=== PATIENT | female | born 1980 | race Caucasian/White ===

== ENCOUNTER → 2017-10-01 | Outpatient (CLI) | payer OTHER ==
[~2017-10-01] MED LIST: CYCL10TA9 PO; CYCL5TAB11 PO; DOCU-143 PO; FESO4 PO; IBUP-15 PO; NAPR-243 PO; OXYC-12 PO; SULF1TAB38 PO; ZLP5T PO
== END ==
LOC: CARD 09:47
PROVIDERS: ATTEND Physician Assistant
DX: I34.0 Nonrheumatic mitral (valve) insufficiency (principal); R01.1 Cardiac murmur, unspecified; R00.2 Palpitations; I07.1 Rheumatic tricuspid insufficiency; E66.9 Obesity, unspecified
CPT/HCPCS: 93017

== ENCOUNTER → 2018-07-22 | Outpatient (CLI) | payer BC ==
[~2018-07-22] MED LIST changes: +HYDR-3812 PO; +ONDA4TAB11 PO; +PRAV20TA3 PO; +SULF1TAB35 PO; +TAMS0.4C2 PO
--- NOTE | 2018-07-22 13:20 | Diagnostic Imaging Report ---
INDICATION: Left kidney stone. COMPARISON: The patient's outside study is not available for comparison. TIME OF EXAM: 1:36 p.m. FINDINGS: The bowel gas pattern is unremarkable. No definite radiopaque renal calculi are seen. There are two calcific densities identified in the left pelvis. These are indeterminate between distal ureteric calculi versus phleboliths. No other calcific densities are seen. IMPRESSION: Left pelvic calcifications, as described. These could be distal ureteric versus phleboliths. Dictated by: Dictated on workstation # [id number]
== END ==
LOC: RAD 12:58
PROVIDERS: ATTEND Urology
DX: N20.2 Calculus of kidney with calculus of ureter (principal)
CPT/HCPCS: 74018

== ENCOUNTER 2018-07-23 05:35 | Outpatient (CLI) | payer BC ==
[~2018-07-23] VITALS: Ht 147.3 cm; Wt 68.5 kg
[~2018-07-23 05:35] MED LIST changes: -HYDR-3812 PO; -ONDA4TAB11 PO; -PRAV20TA3 PO; -SULF1TAB35 PO; -TAMS0.4C2 PO
[2018-07-23] MEDS ORDERED: HYDR-3812 PO (13:42)
[2018-07-23] MEDS ORDERED: ONDA4TAB11 PO (13:42)
[2018-07-23] MEDS ORDERED: SULF1TAB35 PO (13:42)
[2018-07-23] MEDS ORDERED: PRAV20TA3 PO (13:42)
[2018-07-23] MEDS ORDERED: TAMS0.4C2 PO (13:42)
== END 2018-07-23 13:47 | disposition home or self-care (01) ==
LOC: PREOP 05:35
PROVIDERS: ATTEND Urology
DX: Z01.818 Encounter for other preprocedural examination (principal)

== ENCOUNTER 2018-08-10 08:00 | Outpatient (RCR) | payer BC ==
[~2018-08-10 08:00] MED LIST changes: +HYDR-3812 PO; +ONDA4TAB11 PO; +PRAV20TA3 PO; +SULF1TAB35 PO; +TAMS0.4C2 PO
== END 2018-10-23 | disposition home or self-care (01) ==
LOC: LAB 08:00
PROVIDERS: ATTEND Urology
DX: N20.0 Calculus of kidney (principal)
CPT/HCPCS: 82140; 82340; 82507; 82570; 83735; 83945; 83986; 84105; 84133; 84300; 84392; 84560; 88300

== ENCOUNTER → 2018-09-23 | Outpatient (CLI) | payer BC ==
--- NOTE | 2018-09-23 09:52 | Diagnostic Imaging Report ---
PROCEDURE: MRI right joint upper extremity without contrast. TECHNIQUE: Multiplanar, multisequence non contrast-enhanced MRI of the right upper extremity was accomplished. INDICATION: Right shoulder pain x5 months. FINDINGS: Rotator cuff: The rotator cuff appears to be intact. There is minimal edema noted in the distal supraspinatus tendon consistent with mild tendinopathy. The infraspinatus and subscapularis are normal. Labrum: The labrum appears in good position without evidence of disruption. Long head of biceps is in the bicipital groove and shows normal attachment to the labral anchor. Bone and cartilage: The glenohumeral joint is in good alignment. Articulating surfaces are smooth. There is minimal subcortical edema along the humeral tuberosity consistent with mild tendinopathy. The AC joint shows good alignment without hypertrophic changes. Bursa and soft tissue: There is no evidence of joint effusion. The surrounding muscles and tendons appear normal. There is normal bulk to the muscles of the shoulder girdle. IMPRESSION: 1. Findings consistent with mild tendinopathy of the supraspinatus tendon without evidence of rotator cuff tear. Dictated by: Dictated on workstation # [id number]
== END ==
LOC: RAD 07:35
PROVIDERS: ATTEND Nurse Practitioner Family
DX: M25.511 Pain in right shoulder (principal); R20.0 Anesthesia of skin
CPT/HCPCS: 73221

== ENCOUNTER → 2018-10-08 | Outpatient (CLI) | payer BC ==
--- NOTE | 2018-10-08 10:34 | Diagnostic Imaging Report ---
PROCEDURE: MR imaging cervical spine without contrast. TECHNIQUE: Multiplanar, multisequence MR imaging of the cervical spine was performed without contrast. INDICATION: Cervical radiculopathy. COMPARISON: None. FINDINGS: Normal alignment. Vertebral body heights are preserved. Normal bone marrow signal. No abnormal signal in the cervical spinal cord. The visualized paravertebral soft tissues are unremarkable. C2-C3: No spinal canal or neural foraminal narrowing. C3-C4: Broad-based disc bulge results in mild spinal canal narrowing. There is also mild bilateral neural foraminal narrowing. C4-C5: Broad-based disc bulge results in mild spinal canal narrowing. There is moderate right and mild left neural foraminal narrowing. C5-C6: Broad-based disc bulge results in mild spinal canal narrowing. There is moderate right and mild left neural foraminal narrowing. C6-C7: Broad-based disc bulge results in mild spinal canal and bilateral lateral recess narrowing. C7-T1: No substantial spinal canal or neural foraminal narrowing. IMPRESSION: 1. Multiple broad-based disc bulges result in multilevel mild spinal canal narrowing as above. No abnormal signal in the cervical spinal cord. 2. Scattered moderate and mild neural foraminal narrowing also detailed above. 3. No acute osseous findings. Dictated by: Dictated on workstation # [id number]
== END ==
LOC: RAD 09:14
PROVIDERS: ATTEND Nurse Practitioner Family
DX: M50.11 Cervical disc disorder with radiculopathy, high cervical region (principal); M48.02 Spinal stenosis, cervical region
CPT/HCPCS: 72141

== ENCOUNTER → 2019-03-05 | Outpatient (CLI) | payer BC ==
--- NOTE | 2019-03-08 09:20 | Diagnostic Imaging Report ---
INDICATION: Screening TECHNIQUE: The current study was also evaluated with a Computer Aided Detection (CAD) system. 3D Tomographic imaging was also performed. COMPARISON: 02/11/2014. FINDINGS: There are scattered fibroglandular densities bilaterally. There are a few benign type calcifications. There is no dominant mass, spiculated lesion, or suspicious calcification identified. The skin, nipples, and axillae are unremarkable. IMPRESSION: Benign findings. ACR BI-RADS Category 2: Benign findings. Result letter will be mailed to the patient. Note: At least 10% of breast cancer is not imaged by mammography. Dictated by: Dictated on workstation # [id number]
== END ==
LOC: RAD 10:23
PROVIDERS: ATTEND Nurse Practitioner
DX: Z12.31 Encounter for screening mammogram for malignant neoplasm of breast (principal); R10.31 Right lower quadrant pain; R19.09 Other intra-abdominal and pelvic swelling, mass and lump
CPT/HCPCS: 77067

== ENCOUNTER → 2019-03-17 | Outpatient (CLI) | payer BC ==
--- NOTE | 2019-03-17 15:15 | Diagnostic Imaging Report ---
INDICATION: Nephrolithiasis. KUB at 02:55 p.m. FINDINGS: There is a large amount of stool in the colon which obscures much of the detail of the kidneys. There are no obvious calculi seen, but calculus could be obscured by the fecal material. Bowel gas pattern is normal. IMPRESSION: Negative abdomen. Dictated by: Dictated on workstation # [id number]
== END ==
LOC: RAD 14:41
PROVIDERS: ATTEND Urology
DX: N20.0 Calculus of kidney (principal)
CPT/HCPCS: 74018

== ENCOUNTER → 2019-04-23 | Outpatient (CLI) | payer BC | LOC: LAB 12:33 | PROVIDERS: ATTEND Physician Assistant | DX: I08.1 Rheumatic disorders of both mitral and tricuspid valves (principal) ==

== ENCOUNTER → 2019-04-26 | Outpatient (CLI) | payer BC ==
[2019-04-26 08:06] LABS: ALANINE AMINOTRANSFERASE 17 U/L (0-55); ALKALINE PHOSPHATASE 67 U/L (40-136); BILIRUBIN,TOTAL 0.2 MG/DL (0.1-1.0); BUN/CREATININE RATIO 22; CALCIUM 8.8 MG/DL (8.5-10.1); CARBON DIOXIDE 26 MMOL/L (21-32); CHLORIDE 107 MMOL/L (98-107); CHOLESTEROL 217 MG/DL (< 200); CREATININE SERUM 0.69 MG/DL (0.60-1.30); GFR ESTIMATED > 60; GLUCOSE 87 MG/DL (70-105); HDL CHOLESTEROL 62 MG/DL (40-60); POTASSIUM 4.1 MMOL/L (3.6-5.0); SODIUM 141 MMOL/L (135-145); TRIGLYCERIDES 81 MG/DL (<150); VLDL CHOLESTEROL 16 MG/DL (5-40)
== END ==
LOC: LAB 07:32
PROVIDERS: ATTEND Physician Assistant
DX: I08.1 Rheumatic disorders of both mitral and tricuspid valves (principal)
CPT/HCPCS: 36415; 80053; 80061

== ENCOUNTER → 2020-03-22 | Outpatient (CLI) | payer BC ==
[~2020-03-22] MED LIST changes: +ACHD5005 PO; -HYDR-3812 PO
--- NOTE | 2020-03-22 16:02 | Diagnostic Imaging Report ---
INDICATION: History of renal calculi. COMPARISON: 03/17/2019. EXAMINATION: Single supine radiographic view of the abdomen was obtained. FINDINGS: Nonobstructed small bowel. There is no large collection of free intraperitoneal air. No unexpected extraosseous calculation or radiopaque foreign body is seen. Osseous structures show no gross acute abnormality. IMPRESSION: 1. No unexpected extraosseous calcification or radiopaque foreign body. 2. Nonobstructed small bowel gas pattern. Dictated by: Dictated on workstation # [id number]
== END ==
LOC: RAD 14:25
PROVIDERS: ATTEND Urology
DX: Z87.442 Personal history of urinary calculi (principal)
CPT/HCPCS: 74018

== ENCOUNTER → 2020-04-28 | Outpatient (CLI) | payer BC ==
[2020-04-28 09:36] LABS: ALANINE AMINOTRANSFERASE 24 U/L (0-55); ALBUMIN 4.1 GM/DL (3.2-4.5); ALKALINE PHOSPHATASE 62 U/L (40-136); BILIRUBIN,TOTAL 0.4 MG/DL (0.1-1.0); BUN/CREATININE RATIO 19; CALCIUM 8.7 MG/DL (8.5-10.1); CARBON DIOXIDE 25 MMOL/L (21-32); CHLORIDE 107 MMOL/L (98-107); CHOLESTEROL 231 MG/DL (< 200); GFR ESTIMATED > 60; GLUCOSE 94 MG/DL (70-105); HDL CHOLESTEROL 76 MG/DL (40-60); POTASSIUM 3.9 MMOL/L (3.6-5.0); SODIUM 138 MMOL/L (135-145); TOTAL PROTEIN 7.3 GM/DL (6.4-8.2); TRIGLYCERIDES 78 MG/DL (<150); VLDL CHOLESTEROL 16 MG/DL (5-40)
== END ==
LOC: CARD 09:02
PROVIDERS: ATTEND Physician Assistant
DX: I08.1 Rheumatic disorders of both mitral and tricuspid valves (principal)
CPT/HCPCS: 36415; 80053; 80061; 93306

== ENCOUNTER → 2020-05-19 | Outpatient (CLI) | payer BC ==
--- NOTE | 2020-05-19 14:31 | Diagnostic Imaging Report ---
INDICATION: Routine screening. COMPARISON is made with prior mammograms 03/05/2019 and 02/11/2014. 2-D and 3-D bilateral screening mammography was performed with CAD. Scattered fibroglandular densities are identified bilaterally. The parenchymal pattern is stable. No mass or malignant appearing microcalcifications are seen. Axillae are unremarkable. IMPRESSION: BI-RADS Category 1. No mammographic features suspicious for malignancy are identified. ACR BI-RADS Category 1: Negative. Result letter will be mailed to the patient. Note: At least 10% of breast cancer is not imaged by mammography. Dictated by: Dictated on workstation # [id number]
== END ==
LOC: RAD 08:30
PROVIDERS: ATTEND Surgery
DX: Z12.31 Encounter for screening mammogram for malignant neoplasm of breast (principal)
CPT/HCPCS: 77063; 77067

== ENCOUNTER → 2021-01-10 | Outpatient (CLI) | payer BC ==
[2021-01-10 09:18] LABS: ALANINE AMINOTRANSFERASE 18 U/L (0-55); ALBUMIN 4.2 GM/DL (3.2-4.5); ALKALINE PHOSPHATASE 59 U/L (40-136); BILIRUBIN,TOTAL 0.3 MG/DL (0.1-1.0); BUN/CREATININE RATIO 16; CALCIUM 8.7 MG/DL (8.5-10.1); CARBON DIOXIDE 27 MMOL/L (21-32); CHLORIDE 105 MMOL/L (98-107); CHOLESTEROL 267 MG/DL (< 200); CREATININE SERUM 0.77 MG/DL (0.60-1.30); GFR ESTIMATED > 60; GLUCOSE 89 MG/DL (70-105); HDL CHOLESTEROL 69 MG/DL (40-60); POTASSIUM 3.9 MMOL/L (3.6-5.0); SODIUM 140 MMOL/L (135-145); TOTAL PROTEIN 7.5 GM/DL (6.4-8.2); TRIGLYCERIDES 127 MG/DL (<150); VLDL CHOLESTEROL 25 MG/DL (5-40)
== END ==
LOC: LAB 08:23
PROVIDERS: ATTEND Physician Assistant
DX: E78.2 Mixed hyperlipidemia (principal)
CPT/HCPCS: 36415; 80053; 80061

== ENCOUNTER 2021-01-23 11:12 | Emergency (ER) | payer BC ==
[~2021-01-23] VITALS: Ht 147 cm; Wt 68.0 kg
[2021-01-23] MEDS ORDERED: ASPIRIN 81 MG CHEW (CHILDREN'S ASA) ONE (11:19)
[2021-01-23] MEDS ORDERED: LACTATED RINGERS 1,000 ML IV ONE (11:20)
[2021-01-23] MEDS ORDERED: LACTATED RINGERS 1,000 ML IV STA (11:25)
[2021-01-23] MEDS ORDERED: ASPIRIN 81 MG CHEW (CHILDREN'S ASA) PO ONE (11:30)
[2021-01-23 11:43] LABS: BASOPHILS % (AUTO) 1 % (0-10); EOSINOPHILS # (AUTO) 0.2 10^3/uL (0.0-0.3); EOSINOPHILS % (AUTO) 2 % (0-10); HEMATOCRIT 38 % (35-52); HEMOGLOBIN 12.8 g/dL (11.5-16.0); LYMPHOCYTES # (AUTO) 2.3 X 10^3 (1.0-4.0); LYMPHOCYTES % (AUTO) 31 % (12-44); MEAN CORPUSCULAR HEMOGLOBIN 32 pg (25-34); MEAN CORPUSCULAR HGB CONC 33 g/dL (32-36); MEAN CORPUSCULAR VOLUME 95 fL (80-99); MEAN PLATELET VOLUME 9.8 fL (9.0-12.2); MONOCYTES # (AUTO) 0.5 X 10^3 (0.0-1.0); MONOCYTES % (AUTO) 6 % (0-12); NEUTROPHILS # (AUTO) 4.5 X 10^3 (1.8-7.8); NEUTROPHILS % (AUTO) 60 % (42-75); PLATELET COUNT 293 10^3/uL (130-400); WHITE BLOOD COUNT 7.5 10^3/uL (4.3-11.0)
[2021-01-23 11:50] LABS: ALBUMIN 4.2 GM/DL (3.2-4.5); CHLORIDE 103 MMOL/L (98-107); POTASSIUM 3.7 MMOL/L (3.6-5.0); SODIUM 138 MMOL/L (135-145)
[2021-01-23 11:51] LABS: CALCIUM 9.5 MG/DL (8.5-10.1)
[2021-01-23 11:52] LABS: GLUCOSE 78 MG/DL (70-105); TOTAL PROTEIN 7.3 GM/DL (6.4-8.2)
[2021-01-23 11:53] LABS: CARBON DIOXIDE 27 MMOL/L (21-32)
[2021-01-23 11:54] LABS: BILIRUBIN,TOTAL 0.3 MG/DL (0.1-1.0)
[2021-01-23 11:56] LABS: ALKALINE PHOSPHATASE 58 U/L (40-136); CREATININE SERUM 0.69 MG/DL (0.60-1.30); GFR ESTIMATED > 60
[2021-01-23 11:57] LABS: BUN/CREATININE RATIO 23
[2021-01-23 11:58] LABS: MAGNESIUM 1.8 MG/DL (1.6-2.4)
[2021-01-23 11:59] LABS: ALANINE AMINOTRANSFERASE 28 U/L (0-55); INR 0.9 (0.8-1.4); PROTHROMBIN TIME PATIENT 12.5 SEC (12.2-14.7)
[2021-01-23 12:00] LABS: LIPASE 43 U/L (8-78)
--- NOTE | 2021-01-23 12:00 | ED General ---
General Chief Complaint: Chest Pain Stated Complaint: JAW,CP, FATIGUE Nursing Triage Note: PT REPORTS CHEST DISCOMFORT THAT HAS PERSISTED FOR A COUPLE WEEKS. PT REPORTS PAIN RADIATES INTO L ARMPIT L JAW AND BACK. PT REPORTS DIAPHORESIS WHEN PAIN IS SEVERE. Nursing Sepsis Screen: No Definite Risk Source of Information: Patient Exam Limitations: No Limitations History of Present Illness Date Seen by Provider: January 23, 2021 Time Seen by Provider: 11:16 Initial Comments Here with complaint of left-sided chest pain that radiates to the left armpit into the left jaw. Onset intermittent over the last couple weeks but worse since this morning. Also reports that when she has the pain she gets sweaty. Denies nausea, vomiting, weakness or breathing problems. Denies Covid symptoms or upper respiratory illness. Denies fever or chills. She has not had problems like this before. Does have high cholesterol and takes 2 medicines for that and does have family history of heart problems. Timing/Duration: 1-3 Hours, Intermittent, Other (2 weeks intermittent) Severity: Moderate Modifying Factors: improves with Rest Associated Systoms: Chest Pain; No Cough; Diaphoresis; No Fever/Chills, No Nausea/Vomiting Allergies and Home Medications Allergies Coded Allergies: No Known Drug Allergies (Verified , 02/01/08) Home Medications Hydrocodone Bit/Acetaminophen 1 Each Tablet, 1 EACH PO Q6H PRN for PAIN- MODERATE, (Reported) Ondansetron 4 Mg Tab.rapdis, 4 MG PO Q6H PRN for NAUSEA/VOMITING, (Reported) Pravastatin Sodium 20 Mg Tablet, 20 MG PO DAILY, (Reported) Sulfamethoxazole/Trimethoprim 1 Each Tablet, 1 EACH PO BID, (Reported) Tamsulosin HCl 0.4 Mg Cap.er.24h, 0.4 MG PO DAILY, (Reported) Patient Home Medication List Home Medication List Reviewed: Yes Review of Systems Review of Systems Constitutional: see HPI; No chills, No fever EENTM: No nose congestion, No throat pain Respiratory: No cough, No short of breath Cardiovascular: chest pain; No edema, No palpitations Gastrointestinal: No abdominal pain, No nausea, No vomiting Genitourinary: dysuria, hesitancy All Other Systems Reviewed Negative Unless Noted: Yes Past Lalwrar-Exzkmj-Dbxlbh Hx Past Med/Social Hx: Reviewed Nursing Past Med/Soc Hx Patient Social History Alcohol Use: Denies Use Smoking Status: Former Smoker Type Used: Cigarettes Former Smoker, Quit: Aug 15, 2006 Recent Infectious Disease Expo: No Recent Hopitalizations: No Immunizations Up To Date Tetanus Booster (TDap): Unknown Seasonal Allergies Seasonal Allergies: No Past Medical History Surgeries: Yes (D&C/KIDNEY STONE SURG) Appendectomy, Hysterectomy Respiratory: No Cardiac: Yes Heart Murmur, High Cholesterol Neurological: No Reproductive Disorders: No Female Reproductive Disorders: Denies [employer] History: Hysterectomy Sexually Transmitted Disease: No HIV/AIDS: No Kidney Stones Gastrointestinal: No Musculoskeletal: No Endocrine: No Cancer: No Psychosocial: No Integumentary: No Blood Disorders: No Family Medical History Reviewed Nursing Family Hx Physical Exam-Suspected Sepsis Physical Exam Vital Signs Vital Signs - First Documented Capillary Refill : Less Than 3 Seconds Blood Pressure Mean: 101 Height, Weight, BMI Height: 4'10.00" Weight: 151lbs. 0.0oz. [id number]; 31.00 BMI Method:Stated General Appearance: No Apparent Distress, WD/WN HEENT: PERRL/EOMI, Pharynx Normal Neck: Non Tender, Supple Respiratory: Lungs Clear, Normal Breath Sounds Cardiovascular: Regular Rate, Rhythm, No Murmur Gastrointestinal: Non Tender, Soft Back: Normal Inspection, No CVA Tenderness, No Vertebral Tenderness Extremity: Normal Range of Motion, Non Tender Neurologic/Psychiatric: Alert, Oriented x3 Skin: normal color, warm/dry Progress/Results/Core Measures Suspected Sepsis Recent Fever Within 48 Hours: No Infection Criteria Present: None New/Unexplained Altered Menta: No Sepsis Screen: No Definite Risk SIRS Temperature: Pulse: 76 Respiratory Rate: 20 Laboratory Tests 01/23/21 11:20: White Blood Count 7.5 Blood Pressure 132 /85 Mean: 101 Laboratory Tests 01/23/21 11:20: Creatinine 0.69, INR Comment 0.9, Platelet Count 293, Total Bilirubin 0.3 Results/Orders Lab Results Laboratory Tests Test 01/23/21 11:20 01/23/21 12:06 01/23/21 13:30 Range/Units White Blood Count 7.5 4.3-11.0 10^3/uL Red Blood Count 4.05 3.80-5.11 10^6/uL Hemoglobin 12.8 11.5-16.0 g/dL Hematocrit 38 35-52 % Mean Corpuscular Volume 95 80-99 fL Mean Corpuscular Hemoglobin 32 25-34 pg Mean Corpuscular Hemoglobin Concent 33 32-36 g/dL Red Cell Distribution Width 13.3 10.0-14.5 % Platelet Count 293 130-400 10^3/uL Mean Platelet Volume 9.8 9.0-12.2 fL Immature Granulocyte % (Auto) 0 % Neutrophils (%) (Auto) 60 42-75 % Lymphocytes (%) (Auto) 31 12-44 % Monocytes (%) (Auto) 6 0-12 % Eosinophils (%) (Auto) 2 0-10 % Basophils (%) (Auto) 1 0-10 % Neutrophils # (Auto) 4.5 1.8-7.8 X 10^3 Lymphocytes # (Auto) 2.3 1.0-4.0 X 10^3 Monocytes # (Auto) 0.5 0.0-1.0 X 10^3 Eosinophils # (Auto) 0.2 0.0-0.3 10^3/uL Basophils # (Auto) 0.0 0.0-0.1 10^3/uL Immature Granulocyte # (Auto) 0.0 0.0-0.1 10^3/uL Prothrombin Time 12.5 12.2-14.7 SEC INR Comment 0.9 0.8-1.4 Activated Partial Thromboplast Time 29 24-35 SEC D-Dimer 0.67 H 0.00-0.49 UG/ML Sodium Level 138 135-145 MMOL/L Potassium Level 3.7 3.6-5.0 MMOL/L Chloride Level 103 98-107 MMOL/L Carbon Dioxide Level 27 21-32 MMOL/L Anion Gap 8 5-14 MMOL/L Blood Urea Nitrogen 16 7-18 MG/DL Creatinine 0.69 0.60-1.30 MG/DL Estimat Glomerular Filtration Rate > 60 BUN/Creatinine Ratio 23 Glucose Level 78 70-105 MG/DL Calcium Level 9.5 8.5-10.1 MG/DL Corrected Calcium 9.3 8.5-10.1 MG/DL Magnesium Level 1.8 1.6-2.4 MG/DL Total Bilirubin 0.3 0.1-1.0 MG/DL Aspartate Amino Transf (AST/SGOT) 28 5-34 U/L Alanine Aminotransferase (ALT/SGPT) 28 0-55 U/L Alkaline Phosphatase 58 40-136 U/L Myoglobin 34.2 10.0-92.0 NG/ML Troponin I < 0.028 < 0.028 <0.028 NG/ML Total Protein 7.3 6.4-8.2 GM/DL Albumin 4.2 3.2-4.5 GM/DL Lipase 43 8-78 U/L Urine Color YELLOW Urine Clarity SL CLOUDY Urine pH 7.5 5-9 Urine Specific [place] 1.020 1.016-1.022 Urine Protein NEGATIVE NEGATIVE Urine Glucose (UA) NEGATIVE NEGATIVE Urine Ketones NEGATIVE NEGATIVE Urine Nitrite NEGATIVE NEGATIVE Urine Bilirubin NEGATIVE NEGATIVE Urine Urobilinogen 0.2 < = 1.0 MG/DL Urine Leukocyte Esterase NEGATIVE NEGATIVE Urine RBC (Auto) NEGATIVE NEGATIVE Urine RBC NONE /HPF Urine WBC NONE /HPF Urine Squamous Epithelial Cells 5-10 /HPF Urine Crystals PRESENT H /LPF Urine Amorphous Sediment MOD BRADLY PHOSPHATE H /LPF Urine Bacteria TRACE /HPF Urine Casts NONE /LPF Urine Mucus NEGATIVE /LPF Urine Culture Indicated NO My Orders Orders - OBINNA HOLT MD Cbc With Automated Diff (01/23/21 11:25) Magnesium (01/23/21 11:25) Chest 1 View, Ap/Pa Only (01/23/21 11:25) Ekg Tracing (01/23/21 11:25) Comprehensive Metabolic Panel (01/23/21 11:25) Myoglobin Serum (01/23/21 11:25) Protime With Inr (01/23/21 11:25) Partial Thromboplastin Time (01/23/21 11:25) O2 (01/23/21 11:25) Monitor-Rhythm Ecg Trace Only (01/23/21 11:25) Lipid Panel (01/24/21 06:00) Ed Iv/Invasive Line Start (01/23/21 11:25) Lipase (01/23/21 11:25) Fibrin Degradation Products (01/23/21 11:25) Troponin I (01/23/21 11:25) Aspirin Chewable Tablet (Baby Aspirin Ch (01/23/21 11:30) Lactated Ringers (Lr 1000 Ml Iv Solution (01/23/21 11:25) Aspirin Chewable Tablet (Baby Aspirin Ch (01/23/21 11:19) Lactated Ringers (Lr 1000 Ml Iv Solution (01/23/21 11:20) Ua Culture If Indicated (01/23/21 11:43) Troponin I (01/23/21 13:15) Lidocaine 2% Viscous 15 Ml (Xylocaine Vi (01/23/21 13:45) Antacid Suspension (Mylanta Suspension (01/23/21 13:45) Famotidine Injection (Pepcid Injection) (01/23/21 13:34) Medications Given in ED Current Medications Medications Dose Ordered Sig/Hernan Route Start Time Stop Time Status Last Admin Dose Admin Al Hydrox/Mg Hydrox/Simethicone 30 ml ONCE ONCE PO 01/23/21 13:45 01/23/21 13:46 DC 01/23/21 13:58 30 ML Aspirin 324 mg ONCE ONCE PO 01/23/21 11:30 01/23/21 11:31 DC 01/23/21 11:28 324 MG Lidocaine HCl 15 ml ONCE ONCE PO 01/23/21 13:45 01/23/21 13:46 DC 01/23/21 13:58 15 ML Vital Signs/I&O 01/23/21 01/23/21 11:17 11:17 Temp 36.7 Pulse 76 Resp 20 B/P (MAP) 132/85 (101) Pulse Ox 96 O2 Delivery Room Air Room Air Capillary Refill : Less Than 3 Seconds Blood Pressure Mean: 101 Progress Note : Progress Note Seen and evaluated. IV, labs, EKG and chest x-ray ordered. ASA 324 mg p.o. ordered. Pain is essentially gone currently so no nitroglycerin. LR 1 L bolus ordered. Patient also complained of some dysuria so we will check UA. Monitor patient. 1330: Initial labs reassuring. We will repeat troponin. Pepcid 20 mg IV and GI cocktail ordered. Monitor patient. 1420: Pain is gone although she states she has occasional twinge. This is not anything that is sustained or significant. She would like to go home. She has relationship with Dr. Finn. I did call him and he would be able to see her next week. I think this is gustavo sonable. Patient is to call for appointment. She was counseled to return for any concerns and she states that she will. Discharged home with return precautions. Patient verbalized understanding instructions and agreement with plan. Diagnostic Imaging Diagonstic Imaging: Xray Plain Films/CT/US/NM/MRI: chest Comments [facility], [facility]. [place], [place] NAME: JENNIFER COWAN [facility] REC#: [id number] PT STATUS: REG ER : 1980 PHYSICIAN: OBINNA HOLT MD ADMIT DATE: 01/23/21/ER Signed Date of Exam:01/23/21 CHEST 1 VIEW, AP/PA ONLY INDICATION: Chest pain. EXAMINATION: Portable chest at 12:16 p.m. FINDINGS: Heart size and pulmonary vascularity are normal. Lungs are clear. There are no effusions or pneumothoraces. IMPRESSION: Negative chest. Dictated by: Dictated on workstation # [id number] Dict: 01/23/21 1216 Trans: 01/23/21 1247 [id number] Interpreted by: OBINNA CUEVAS MD Electronically signed by: OBINNA CUEVAS MD 01/23/21 1247 Departure Impression Primary Impression: Chest pain Qualified Codes: R07.9 - Chest pain, unspecified Disposition: 01 HOME, SELF-CARE Condition: Improved Departure-Patient Inst. Decision time for Depature: 14:21 Referrals: MARY FINN MD NO,LOCAL PHYSICIAN (PCP) Primary Care Physician Patient Instructions: Chest Pain (DC) Add. Discharge Instructions: All discharge instructions reviewed with patient and/or family. Voiced un derstanding. Follow-up with Dr. Finn next week. Call his office today for appointment for next week. Let the scheduling person know that the case was discussed with him and he would like to see you next week. Return for worse pain, sweating, breathing problems, weakness, vomiting or other concerns as needed. Continue home medications as previously prescribed. Copy Copies To 1: MARY FINN MD, TIMOTHY D MD January 23, 2021 11:59
[2021-01-23 12:10] LABS: BILIRUBIN,URINE NEGATIVE (NEGATIVE); CLARITY,URINE SL CLOUDY; COLOR,URINE YELLOW; GLUCOSE, URINE (UA) NEGATIVE (NEGATIVE); KETONES,URINE NEGATIVE (NEGATIVE); LEUKOCYTE ESTERASE ,URINE NEGATIVE (NEGATIVE); NITRITE,URINE NEGATIVE (NEGATIVE); PH,URINE 7.5 (5-9); PROTEIN,URINE NEGATIVE (NEGATIVE)
--- NOTE | 2021-01-23 12:21 | Diagnostic Imaging Report ---
INDICATION: Chest pain. EXAMINATION: Portable chest at 12:16 p.m. FINDINGS: Heart size and pulmonary vascularity are normal. Lungs are clear. There are no effusions or pneumothoraces. IMPRESSION: Negative chest. Dictated by: Dictated on workstation # [id number]
[2021-01-23 12:34] LABS: AMORPHOUS SEDIMENT,UR MOD AMOR PHOSPHATE /LPF; BACTERIA,URINE TRACE /HPF
[2021-01-23] MEDS ORDERED: FAMOTIDINE 20MG/2ML IV (PEPCID) IV STA (13:34)
[2021-01-23] MEDS ORDERED: ANTACID SUSP 30 ML UDC (MYLANTA) PO ONE (13:45)
[2021-01-23] MEDS ORDERED: LIDOCAINE 2% VISCOUS 15 ML UDC PO ONE (13:45)
[2021-01-23 14:41] VITALS: BP 103/75
== END 2021-01-23 14:45 | disposition home or self-care (01) ==
LOC: EDUNIT# 11:12 → ER 11:14
DX: R07.9 Chest pain, unspecified (principal); R30.0 Dysuria; E78.00 Pure hypercholesterolemia, unspecified; Z87.442 Personal history of urinary calculi; Z87.891 Personal history of nicotine dependence; Z79.899 Other long term (current) drug therapy; Z82.49 Family history of ischemic heart disease and other diseases of the circulatory system
CPT/HCPCS: 36415; 71045; 80053; 81000; 83690; 83735; 83874; 84484; 85025; 85379; 85610; 85730; 93005; 93041

== ENCOUNTER → 2021-04-30 | Outpatient (CLI) | payer BC ==
[~2021-04-30] MED LIST changes: -SULF1TAB35 PO
[2021-04-30 08:43] LABS: ALBUMIN 4.1 GM/DL (3.2-4.5); BILIRUBIN,TOTAL 0.4 MG/DL (0.1-1.0); CALCIUM 8.9 MG/DL (8.5-10.1); CREATININE SERUM 0.73 MG/DL (0.60-1.30); POTASSIUM 3.7 MMOL/L (3.6-5.0); TOTAL PROTEIN 7.4 GM/DL (6.4-8.2)
== END ==
LOC: CARD 10:30
PROVIDERS: ATTEND Internal Medicine Cardiovascular Disease
DX: I34.0 Nonrheumatic mitral (valve) insufficiency (principal); I10 Essential (primary) hypertension; I25.10 Atherosclerotic heart disease of native coronary artery without angina pectoris; E78.2 Mixed hyperlipidemia
CPT/HCPCS: 36415; 80053; 80061; 93306

== ENCOUNTER 2021-05-09 20:25 | Emergency (ER) | payer BC ==
[~2021-05-09] VITALS: Ht 150 cm; Wt 70.5 kg
--- NOTE | 2021-05-09 20:37 | ED GU-Female ---
General Stated Complaint: POSS VAG BLEEDING/BLOOD IN URINE HX: HYSTERECTOMY Source: patient Exam Limitations: no limitations History of Present Illness Date Seen by Provider: May 09, 2021 Time Seen by Provider: 20:37 Initial Comments This is a 40-year-old female who presents to the ER with concerns of blood in her urine. States that throughout the day she has noticed a little bit of blood every time she urinates, this evening when she went to the bathroom she noted "quite a bit more blood". States that she is having urinary frequency and difficulty emptying. Reports pain in right lower quadrant, constant stabbing pain. Reports /10. States she has history of kidney stones but this does not feel like prior stone. Has diarrhea that started today. No fever, chills, cough, shortness of breath, nausea, or vomiting. Prior hysterectomy. Allergies and Home Medications Allergies Coded Allergies: No Known Drug Allergies (Verified , 02/01/08) Home Medications Hydrocodone Bit/Acetaminophen 1 Each Tablet, 1 EACH PO Q6H PRN for PAIN-MODER ATE, (Reported) Hydrocodone/Acetaminophen 1 Each Tablet, 1 TAB PO Q4H PRN for PAIN-MODERATE (5-7 ) Prescribed by: FREDDIE SANCHES on 05/09/21 7884 Ondansetron 4 Mg Tab.rapdis, 4 MG PO Q6H PRN for NAUSEA/VOMITING, (Reported) Pravastatin Sodium 20 Mg Tablet, 20 MG PO DAILY, (Reported) Sulfamethoxazole/Trimethoprim 1 Each Tablet, 1 EACH PO BID, (Reported) Sulfamethoxazole/Trimethoprim 1 Each Tablet, 1 EACH PO BID Prescribed by: FREDDIE SANCHES on 05/09/212204 Tamsulosin HCl 0.4 Mg Cap.er.24h, 0.4 MG PO DAILY, (Reported) Tamsulosin HCl 0.4 Mg Cap, 0.4 MG PO DAILY Prescribed by: FREDDIE SANCHES on 05/10/21 0003 Patient Home Medication List Home Medication List Reviewed: Yes Review of Systems Review of Systems Constitutional: no symptoms reported EENTM: no symptoms reported Respiratory: no symptoms reported Cardiovascular: no symptoms reported Gastrointestinal: RLQ Genitourinary: see HPI Musculoskeletal: no symptoms reported Skin: no symptoms reported Psychiatric/Neurological: No Symptoms Reported Endocrine: No Symptoms Reported Hematologic/Lymphatic: No Symptoms Reported Past Igjzzav-Nqlyml-Mfgphb Hx Immunizations Up To Date Tetanus Booster (TDap): Unknown Seasonal Allergies Seasonal Allergies: No Past Medical History Surgeries: Yes (D&C/KIDNEY STONE SURG) Appendectomy, Hysterectomy Respiratory: No Cardiac: Yes Heart Murmur, High Cholesterol Neurological: No Reproductive Disorders: No Female Reproductive Disorders: Denies 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 0.0oz. 68.802851yi; 31.00 BMI Method:Stated General Appearance: WD/WN, no apparent distress HEENT: PERRL/EOMI, normal ENT inspection, TMs normal, pharynx normal Neck: full range of motion, supple, normal inspection Cardiovascular: regular rate, rhythm, no murmur Respiratory: lungs clear, normal breath sounds Gastrointestinal: normal bowel sounds, soft; No distended, No rebound; tenderness (RLQ); No hepatomegaly, No spleenomegaly Back: normal inspection, no CVA tenderness Extremities: normal range of motion, non-tender, normal inspection Neurologic/Psychiatric: no motor/sensory deficits, alert, normal mood/affect, oriented x 3 Skin: normal color, warm/dry Progress/Results/Core Measures Suspected Sepsis SIRS Temperature: Pulse: Respiratory Rate: Laboratory Tests 05/09/21 20:44: White Blood Count 8.4 Blood Pressure / Mean: Laboratory Tests 05/09/21 20:44: Creatinine 0.78, Platelet Count 267, Total Bilirubin 0.2 Results/Orders Lab Results Laboratory Tests Test 05/09/21 20:44 05/09/21 20:48 Range/Units White Blood Count 8.4 4.3-11.0 10^3/uL Red Blood Count 4.08 3.80-5.11 10^6/uL Hemoglobin 12.8 11.5-16.0 g/dL Hematocrit 38 35-52 % Mean Corpuscular Volume 94 80-99 fL Mean Corpuscular Hemoglobin 31 25-34 pg Mean Corpuscular Hemoglobin Concent 33 32-36 g/dL Red Cell Distribution Width 12.8 10.0-14.5 % Platelet Count 267 130-400 10^3/uL Mean Platelet Volume 9.5 9.0-12.2 fL Immature Granulocyte % (Auto) 0 % Neutrophils (%) (Auto) 55 42-75 % Lymphocytes (%) (Auto) 36 12-44 % Monocytes (%) (Auto) 6 0-12 % Eosinophils (%) (Auto) 2 0-10 % Basophils (%) (Auto) 1 0-10 % Neutrophils # (Auto) 4.6 1.8-7.8 10^3/uL Lymphocytes # (Auto) 3.0 1.0-4.0 10^3/uL Monocytes # (Auto) 0.5 0.0-1.0 10^3/uL Eosinophils # (Auto) 0.2 0.0-0.3 10^3/uL Basophils # (Auto) 0.1 0.0-0.1 10^3/uL Immature Granulocyte # (Auto) 0.0 0.0-0.1 10^3/uL Sodium Level 139 135-145 MMOL/L Potassium Level 3.9 3.6-5.0 MMOL/L Chloride Level 104 98-107 MMOL/L Carbon Dioxide Level 27 21-32 MMOL/L Anion Gap 8 5-14 MMOL/L Blood Urea Nitrogen 9 7-18 MG/DL Creatinine 0.78 0.60-1.30 MG/DL Estimat Glomerular Filtration Rate 82 BUN/Creatinine Ratio 12 Glucose Level 85 70-105 MG/DL Calcium Level 9.7 8.5-10.1 MG/DL Corrected Calcium 9.5 8.5-10.1 MG/DL Total Bilirubin 0.2 0.1-1.0 MG/DL Aspartate Amino Transf (AST/SGOT) 28 5-34 U/L Alanine Aminotransferase (ALT/SGPT) 25 0-55 U/L Alkaline Phosphatase 55 40-136 U/L Total Protein 7.5 6.4-8.2 GM/DL Albumin 4.2 3.2-4.5 GM/DL Urine Color RED H Urine Clarity TURBID Urine pH 7.0 5-9 Urine Specific [place] 1.020 1.016-1.022 Urine Protein 2+ H NEGATIVE Urine Glucose (UA) NEGATIVE NEGATIVE Urine Ketones TRACE H NEGATIVE Urine Nitrite POSITIVE H NEGATIVE Urine Bilirubin 1+ H NEGATIVE Urine Urobilinogen 1.0 < = 1.0 MG/DL Urine Leukocyte Esterase TRACE H NEGATIVE Urine RBC (Auto) 3+ H NEGATIVE Urine RBC TNTC H /HPF Urine WBC 0-2 /HPF Urine Crystals NONE /LPF Urine Bacteria NEGATIVE /HPF Urine Casts NONE /LPF Urine Mucus NEGATIVE /LPF Urine Culture Indicated NO My Orders Orders - FREDDIE SANCHES APRN Cbc With Automated Diff (05/09/21 20:35) Comprehensive Metabolic Panel (05/09/21 20:35) Ua Culture If Indicated (05/09/21 20:35) Ns Iv 1000 Ml (Sodium Chloride 0.9%) (05/09/21 21:15) Ketorolac Injection (Toradol Injection) (05/09/21 21:15) Ceftriaxone (Rocephin) (05/09/21 21:30) Urine Culture (05/09/21 21:30) Ct Abdomen/Pelvis W (05/09/21 21:34) Fentanyl Inj (Sublimaze Injection) (05/09/21 22:30) Iohexol Injection (Omnipaque 350 Mg/Ml 1 (05/09/21 23:15) Received Contrast (Hold Metformin- Contr (05/09/21 23:15) Sodium Chloride Flush (Catheter Flush Sy (05/09/21 23:15) Ns (Ivpb) (Sodium Chloride 0.9% Ivpb Bag (05/09/21 23:15) Ondansetron Injection (Zofran Injectio (05/09/21 23:30) Ondansetron Injection (Zofran Injectio (05/09/21 23:20) Hydromorphone Injection (Dilaudid Inject (05/10/21 00:00) Rx-Hydrocodone/Apap 5-325 Mg (Rx-Vicodin (05/10/21 00:00) Abdomen/Kub 1view (05/10/21 00:01) Medications Given in ED Vital Signs/I&O 05/10/21 00:30 Temp 36.2 Pulse 77 Resp 17 B/P (MAP) 99/85 Pulse Ox 98 O2 Delivery Room Air Capillary Refill : Progress Note : Progress Note Patient examined and in no acute distress. Given Toradol and IV fluids. Orders placed for basic labs and UA. Labs reviewed and are unremarkable. Possible urinary tract infection. Will obtain CT due to persistent right lower quadrant pain despite Toradol. Could represent colitis. Orders given for fentanyl 50 mcg IV push and Rocephin [address] abd/pelvis with shows 0.6cm non-obstructing right kidney stone. Given Dilaudid 0.5mg IV for persistent pain. Rx for Flomax and Hilda-tab given. Discharge POC reviewed and she is agreeable with plan. Will provide urine strainer to monitor for passing of stone. Diagnostic Imaging Diagonstic Imaging: CT Plain Films/CT/US/NM/MRI: abdomen Comments [facility] [place], [place] NAME: JENNIFER COWAN [facility] REC#: [id number] PT STATUS: REG ER : 1980 PHYSICIAN: FREDDIE SANCHES APRN ADMIT DATE: 05/09/21/ER Draft Date of Exam:05/09/21 CT ABDOMEN/PELVIS W PROCEDURE: CT abdomen and pelvis with contrast. TECHNIQUE: Multiple contiguous axial images were obtained through the abdomen and pelvis after administration of intravenous contrast. Auto Exposure Controls were utilized during the CT exam to meet ALARA standards for radiation dose reduction. All CT scans use one or more of the following dose optimizing techniques: automated exposure control, MA and/or KvP adjustment based on patient size and exam type or iterative reconstruction. INDICATION: Right lower quadrant pain COMPARISON: 06/25/2013 FINDINGS: The visualized lung bases are clear. The liver, spleen, adrenal glands, and pancreas are unremarkable. The gallbladder is unremarkable. A 0.6 cm calculus is noted within the right ureteropelvic junction. There is, however, no significant right-sided hydronephrosis. The right ureter is unremarkable. Probable tiny nonobstructing left renal calculi. Otherwise, the left kidney is unremarkable. No aneurysmal dilatation of the abdominal aorta. Small fat-containing umbilical hernia. The urinary bladder is unremarkable. The uterus is not visualized, likely surgically absent. No abnormal adnexal mass lesion. No bowel obstruction or pneumatosis. The appendix is not definitely seen, though there are no secondary signs of acute appendicitis. No significant adenopathy, free air, or free fluid within the abdomen or pelvis. No acute osseous abnormality. IMPRESSION: A 0.6 cm nonobstructing calculus within the right ureterovesicular junction. Probable small nonobstructing left renal calculi. Additional findings as above. The appendix was not definitely identified, though there are no secondary signs of acute appendicitis. Dictated on workstation # [id number] Dict: 05/09/21 2336 Trans: 05/09/21 2345 [facility] [id number] Interpreted by: YENNY EDWARD MD Electronically signed by: Reviewed: Reviewed by Me Diagonstic Imaging: Xray Plain Films/CT/US/NM/MRI: abdomen Comments [facility] [place] [place] NAME: JENNIFER COWAN [facility] REC#: [id number] PT STATUS: DEP ER : 1980 PHYSICIAN: FREDDIE SANCHES APRN ADMIT DATE: 05/09/21/ER Signed Date of Exam:05/10/21 ABDOMEN/KUB 1VIEW INDICATION: Nephrolithiasis. KUB 12:22 AM FINDINGS: There is contrast in both kidneys and urinary bladder from prior contrast administration. The collecting system of the right kidney and proximal greater are mildly prominent compared to the left but not abnormally dilated. IMPRESSION: Possible mild obstruction of the right ureter. Dictated by: Dictated on workstation # [id number] Dict: 05/10/2117 Trans: 05/10/21 07 [id number] Interpreted by: OBINNA CUEVAS MD Electronically signed by: OBINNA CUEVAS MD 05/10/21720 Reviewed: Reviewed by Me Departure Impression Primary Impression: Kidney stone on right side Additional Impression: Urinary tract infection Disposition: 01 HOME, SELF-CARE Condition: Improved Departure-Patient Inst. Decision time for Depature: 23:57 Referrals: NO,LOCAL PHYSICIAN (PCP/Family) Primary Care Physician Patient Instructions: Urinary Tract Infection, Adult (DC) Add. Discharge Instructions: Plan: 1. Drink plenty of fluids. Take antibiotics as directed and complete full course . 2. Take Hydrocodone as directed for pain. Take Flomax daily after your evening meal. 3. May take Ibuprofen as needed for pain per package. 4. Strain all of your urine to monitor for passing of stone. 5. Call Dr. Carr office for close follow up in the morning. [phone]. 6. Return to ER for any new, concerning, or worsening symptoms. Scripts Tamsulosin HCl (Flomax) 0.4 Mg Cap 0.4 MG PO DAILY, #20 CAP 0 Refills Prov: FREDDIE SANCHES HAND BUTTON SPLITTER 05/10/21 Hydrocodone/Acetaminophen (Hydrocodone-Acetamin 5-325 mg) 1 Each Tablet 1 TAB PO Q4H PRN for PAIN-MODERATE (5-7), #20 TAB 0 Refills Prov: FREDDIE SANCHES HAND BUTTON SPLITTER 05/09/21 Sulfamethoxazole/Trimethoprim (Bactrim Ds Tablet) 1 Each Tablet 1 EACH PO BID for 7 Days, #14 TAB 0 Refills Prov: FREDDIE SANCHES HAND BUTTON SPLITTER 05/09/21 FREDDIE SANCHES HAND BUTTON SPLITTER May 09, 2021 20:37
[2021-05-09 20:54] LABS: BASOPHILS # (AUTO) 0.1 10^3/uL (0.0-0.1); BASOPHILS % (AUTO) 1 % (0-10); EOSINOPHILS # (AUTO) 0.2 10^3/uL (0.0-0.3); EOSINOPHILS % (AUTO) 2 % (0-10); HEMATOCRIT 38 % (35-52); HEMOGLOBIN 12.8 g/dL (11.5-16.0); LYMPHOCYTES % (AUTO) 36 % (12-44); MEAN CORPUSCULAR HEMOGLOBIN 31 pg (25-34); MEAN CORPUSCULAR HGB CONC 33 g/dL (32-36); MEAN CORPUSCULAR VOLUME 94 fL (80-99); MEAN PLATELET VOLUME 9.5 fL (9.0-12.2); MONOCYTES # (AUTO) 0.5 10^3/uL (0.0-1.0); MONOCYTES % (AUTO) 6 % (0-12); NEUTROPHILS # (AUTO) 4.6 10^3/uL (1.8-7.8); NEUTROPHILS % (AUTO) 55 % (42-75); PLATELET COUNT 267 10^3/uL (130-400); WHITE BLOOD COUNT 8.4 10^3/uL (4.3-11.0)
[2021-05-09 20:57] LABS: CLARITY,URINE TURBID; COLOR,URINE RED; GLUCOSE, URINE (UA) NEGATIVE (NEGATIVE); KETONES,URINE TRACE (NEGATIVE); LEUKOCYTE ESTERASE ,URINE TRACE (NEGATIVE); NITRITE,URINE POSITIVE (NEGATIVE); PROTEIN,URINE 2+ (NEGATIVE)
[2021-05-09 21:08] LABS: ALBUMIN 4.2 GM/DL (3.2-4.5); BILIRUBIN,TOTAL 0.2 MG/DL (0.1-1.0); CALCIUM 9.7 MG/DL (8.5-10.1); CREATININE SERUM 0.78 MG/DL (0.60-1.30); POTASSIUM 3.9 MMOL/L (3.6-5.0); TOTAL PROTEIN 7.5 GM/DL (6.4-8.2)
[2021-05-09] MEDS ORDERED: NS IV 1000 ML 1,000 ML IV ONE (21:15)
[2021-05-09] MEDS ORDERED: KETOROLAC 30 MG/ML VIAL IVP ONE (21:15)
[2021-05-09 21:21] LABS: BILIRUBIN,URINE 1+ (NEGATIVE)
[2021-05-09 21:24] LABS: BACTERIA,URINE NEGATIVE /HPF; RBC,URINE TNTC /HPF; WBC,URINE 0-2 /HPF
[2021-05-09] MEDS ORDERED: cefTRIAXone 1,000 MG in WATER (STERILE) FOR INJECTION 10 ML IV ONE (21:30)
[2021-05-09] MEDS ORDERED: SULF1TAB38 PO (22:05)
[2021-05-09] MEDS ORDERED: fentaNYL INJ 100 MCG/2 ML AMP IVP ONE (22:30)
[2021-05-09] MEDS ORDERED: CATHETER FLUSH 10 ML SYR IV PRN (23:15)
[2021-05-09] MEDS ORDERED: HOLD METFORMIN - RECEIVED CONTRAST 20 ML VIAL IV SCH (23:15)
[2021-05-09] MEDS ORDERED: IOHEXOL 350 MG/ML 100 ML (OMNIPAQUE 350) VIAL IV ONE (23:15)
[2021-05-09] MEDS ORDERED: NS 100 ML (IVPB) BAG IV ONE (23:15)
[2021-05-09] MEDS ORDERED: ONDANSETRON 4 MG/2 ML (SDV) Z0FRAN ONE (23:20)
[2021-05-09] MEDS ORDERED: ONDANSETRON 4 MG/2 ML (SDV) Z0FRAN IVP ONE (23:30)
--- NOTE | 2021-05-09 23:46 | Diagnostic Imaging Report ---
PROCEDURE: CT abdomen and pelvis with contrast. TECHNIQUE: Multiple contiguous axial images were obtained through the abdomen and pelvis after administration of intravenous contrast. Auto Exposure Controls were utilized during the CT exam to meet ALARA standards for radiation dose reduction. All CT scans use one or more of the following dose optimizing techniques: automated exposure control, MA and/or KvP adjustment based on patient size and exam type or iterative reconstruction. INDICATION: Right lower quadrant pain COMPARISON: 06/25/2013 FINDINGS: The visualized lung bases are clear. The liver, spleen, adrenal glands, and pancreas are unremarkable. The gallbladder is unremarkable. A 0.6 cm calculus is noted within the right ureteropelvic junction. There is, however, no significant right-sided hydronephrosis. The right ureter is unremarkable. Probable tiny nonobstructing left renal calculi. Otherwise, the left kidney is unremarkable. No aneurysmal dilatation of the abdominal aorta. Small fat-containing umbilical hernia. The urinary bladder is unremarkable. The uterus is not visualized, likely surgically absent. No abnormal adnexal mass lesion. No bowel obstruction or pneumatosis. The appendix is not definitely seen, though there are no secondary signs of acute appendicitis. No significant adenopathy, free air, or free fluid within the abdomen or pelvis. No acute osseous abnormality. IMPRESSION: A 0.6 cm nonobstructing calculus within the right ureterovesicular junction. Probable small nonobstructing left renal calculi. Additional findings as above. The appendix was not definitely identified, though there are no secondary signs of acute appendicitis. Dictated by: Dictated on workstation # [id number]
[2021-05-09] MEDS ORDERED: ACHD5005 PO (23:58)
[2021-05-10] MEDS ORDERED: HYDROmorphone 2 MG/ML VIAL (DILAUDID) IV ONE
[2021-05-10] MEDS ORDERED: TMSL.4C PO (00:03)
[2021-05-10 00:30] VITALS: BP 99/85
--- NOTE | 2021-05-10 06:22 | Diagnostic Imaging Report ---
INDICATION: Nephrolithiasis. KUB 12:22 AM FINDINGS: There is contrast in both kidneys and urinary bladder from prior contrast administration. The collecting system of the right kidney and proximal greater are mildly prominent compared to the left but not abnormally dilated. IMPRESSION: Possible mild obstruction of the right ureter. Dictated by: Dictated on workstation # [id number]
[2021-05-15] MEDS ORDERED: ROSU5TAB13 PO (16:54)
[2021-05-15] MEDS ORDERED: FLUO40CA PO (16:54)
[2021-05-15] MEDS ORDERED: EZET10TA49 PO (16:54)
[2021-05-15] MEDS ORDERED: ESTR1TAB24 PO (16:54)
[2021-05-15] MEDS ORDERED: ACYC400T21 PO (16:54)
[2021-05-16] MEDS ORDERED: KETO10TA PO (13:19)
[2021-05-16] MEDS ORDERED: NITR-65 PO (13:19)
== END 2021-05-10 00:30 | disposition home or self-care (01) ==
LOC: EDUNIT# 20:25 → ER 20:28
DX: N20.0 Calculus of kidney (principal); N39.0 Urinary tract infection, site not specified; E78.00 Pure hypercholesterolemia, unspecified; Z79.899 Other long term (current) drug therapy
CPT/HCPCS: 36415; 74018; 74177; 80053; 81000; 85025; 87088; 96374; 96375

== ENCOUNTER 2021-05-15 14:28 | Outpatient (CLI) | payer BC ==
[~2021-05-15] VITALS: Ht 167.7 cm; Wt 72.7 kg
[~2021-05-15 14:28] MED LIST changes: -ACYC400T21 PO; -ESTR1TAB24 PO; -EZET10TA49 PO; -FLUO40CA PO; -KETO10TA PO; -NITR-65 PO; -ROSU5TAB13 PO
[2021-05-15] MEDS ORDERED: ACYC400T21 PO ×2 (16:54)
[2021-05-15] MEDS ORDERED: EZET10TA49 PO ×2 (16:54)
[2021-05-15] MEDS ORDERED: FLUO40CA PO ×2 (16:54)
[2021-05-15] MEDS ORDERED: ROSU5TAB13 PO ×2 (16:54)
[2021-05-15] MEDS ORDERED: ESTR1TAB24 PO ×2 (16:54)
[2021-05-16] MEDS ORDERED: KETO10TA PO ×2 (13:19)
[2021-05-16] MEDS ORDERED: NITR-65 PO ×2 (13:19)
== END 2021-05-15 16:56 | disposition home or self-care (01) ==
LOC: PREOP 14:28
PROVIDERS: ATTEND Urology
DX: Z01.818 Encounter for other preprocedural examination (principal)

== ENCOUNTER → 2021-05-15 | Outpatient (CLI) | payer BC ==
[~2021-05-15] MED LIST changes: +ACYC400T21 PO; +ESTR1TAB24 PO; +EZET10TA49 PO; +FLUO40CA PO; +KETO10TA PO; +NITR-65 PO; +ROSU5TAB13 PO; +TMSL.4C PO
--- NOTE | 2021-05-15 15:38 | Diagnostic Imaging Report ---
INDICATION: Right renal stone COMPARISON: 05/10/2021 and 05/09/2021 TECHNIQUE: Single radiograph of the abdomen dated 05/15/2021. FINDINGS: Two adjacent 3 mm calcifications are identified overlying the right L3 transverse process. This is felt to relate to the recently noted calculi within the right ureteropelvic junction. No definite calcifications overlying the left renal shadow. Nonobstructive bowel gas pattern. No free air. No acute osseous abnormality. IMPRESSION: Two adjacent 3 mm calcifications overlying the right L3 transverse process are felt to relate to previously noted right sided ureteropelvic junction calculi, best seen on recent CT examination. No evidence of bowel obstruction. Dictated by: Dictated on workstation # [id number]
== END ==
LOC: RAD 12:19
PROVIDERS: ATTEND Urology
DX: N20.0 Calculus of kidney (principal)
CPT/HCPCS: 74018

== ENCOUNTER 2021-05-16 08:07 | Day surgery (SDC) | payer BC ==
[~2021-05-16] VITALS: Ht 167.7 cm; Wt 72.7 kg
[2021-05-16] VITALS (10 sets, daily range): BP systolic 99–120; BP diastolic 65–85
[~2021-05-16 08:07] MED LIST changes: +ACYC400T21 PO; +ESTR1TAB24 PO; +EZET10TA49 PO; +FLUO40CA PO; +ROSU5TAB13 PO
[2021-05-16] MEDS ORDERED: cefTRIAXone 1,000 MG in WATER (STERILE) FOR INJECTION 10 ML IV ONE (08:30)
--- NOTE | 2021-05-16 08:42 | Progress Note-Pre Operative ---
Pre-Operative Progress Note H&P Reviewed The H&P was reviewed, patient examined and no changes noted. Date Seen by Provider: May 16, 2021 Time Seen by Provider: 08:41 Date H&P Reviewed: May 16, 2021 Time H&P Reviewed: 08:41 Pre-Operative Diagnosis: RT PROXIMAL URETERAL STONE JOANN CANADA MD May 16, 2021 08:42
--- NOTE | 2021-05-16 09:27 | Diagnostic Imaging Report ---
INDICATION: Right ureteral stone. TECHNIQUE/COMPARISON: An abdominal film was obtained at 8:40 AM and compared to yesterday. FINDINGS: There is prominent stool throughout the colon. There is a faint calcification over the right side of the abdomen just to the right of L3 which has not appreciably changed compared to the previous study. No other abnormal calcifications are visualized. IMPRESSION: Stable appearance of faint calcification to the right of L3. No other abnormal findings. Dictated by: Dictated on workstation # [id number]
--- NOTE | 2021-05-16 09:41 | Progress Note-Post Operative ---
Post-Operative Progess Note Surgeon (s)/Ict Sales Representative (s) Surgeon JOANN CANADA MD Ict Sales Representative: NONE Pre-Operative Diagnosis RT PROXIMAL URETERAL STONE Post-Operative Diagnosis SAME Procedure & Operative Findings Date of Procedure 05/16/21 Procedure Performed/Findings RT ESWL Anesthesia Type GENERAL Estimated Blood Loss Estimated blood loss (mL): NONE Specimens/Packing Specimens Removed NONE Packing: NONE JOANN CANADA MD May 16, 2021 09:41
[2021-05-16] MEDS: LACTATED RINGERS 1,000 ML IV PRN ×2 (10:12→11:42)
[2021-05-16] MEDS ORDERED: MIDAZOLAM 2 MG/2 ML (VERSED) VIAL ONE ×2 (10:16→10:52)
[2021-05-16] MEDS ORDERED: MIDAZOLAM 2 MG/2 ML (VERSED) VIAL IVP ONE (10:30)
[2021-05-16] MEDS ORDERED: fentaNYL INJ 100 MCG/2 ML AMP ONE (10:51)
[2021-05-16] MEDS ORDERED: FUROSEMIDE 40 MG/4 ML INJ (LASIX) ONE (11:08)
[2021-05-16] MEDS ORDERED: proPOfol 200 MG/20 ML (DIPRIVAN) VIAL IV ONE (11:08)
[2021-05-16] MEDS ORDERED: ONDANSETRON 4 MG/2 ML (SDV) Z0FRAN ONE (11:08)
[2021-05-16] MEDS ORDERED: KETOROLAC 30 MG/ML VIAL ONE (11:08)
[2021-05-16] MEDS ORDERED: LIDOCAINE PF 2% 5 ML (XYLOCAINE) VIAL ONE (11:08)
[2021-05-16] MEDS ORDERED: SEVOFLURANE (ULTANE) 15 ML INHAL SOLN ONE (11:09)
--- NOTE | 2021-05-16 11:14 | Discharge Inst-Urology ---
Discharge Inst-Urology Reconcile Patient Problems Problems Reviewed?: Yes Patient Instructions/Follow Up Plan/Assessment/Instructions Please make appointment to been seen in office in 2 weeks. KUB prior to it KUB on way home Post ESWL INSTRUCTIONS Increase oral fluids for 48 hours and then as needed. Diet and Activity as tolerated. If questions or concerns contact your physician Or seek help at emergency department. JOANN CANADA MD May 16, 2021 11:14
--- NOTE | 2021-05-16 11:35 | Anesthesia-General Post-Op ---
General Patient Condition Mental Status/LOC: Same as Preop Cardiovascular: Satisfactory Nausea/Vomiting: Absent Respiratory: Satisfactory Pain: Controlled Complications: Absent Post Op Complications Complications None Follow Up Care/Instructions Patient Instructions None needed. Anesthesia/Patient Condition Patient Condition Patient is doing well, no complaints, stable vital signs, no apparent adverse anesthesia problems. No complications reported per nursing. HIMANSHU VILLEGAS CRNA May 16, 2021 11:35
[2021-05-16] MEDS ORDERED: LACTATED RINGERS 1,000 ML IV ONE (11:40)
[2021-05-16] MEDS ORDERED: ONDANSETRON 4 MG/2 ML (SDV) Z0FRAN IVP PRN (11:45)
[2021-05-16] MEDS ORDERED: HYDROcodone/APAP 5 MG/325 MG (LORTAB) TAB PO ONE (12:45)
[2021-05-16] MEDS ORDERED: KETO10TA PO ×2 (13:19)
[2021-05-16] MEDS ORDERED: NITR-65 PO ×2 (13:19)
--- NOTE | 2021-05-16 14:03 | Diagnostic Imaging Report ---
EXAM: ABDOMEN/KUB 1VIEW INDICATION: Renal stones. COMPARISON: Abdominal radiograph from 05/16/2021 at 08:40 a.m. FINDINGS: There are remaining couple of faint calcifications near the right L3 transverse process, stable compared to earlier today. Nonspecific bowel gas pattern. No other radiopaque densities. IMPRESSION: Stable faint calcifications at the level of the right L3 transverse process. Dictated by: Dictated on workstation # [id number]
--- NOTE | 2021-05-16 14:44 | OPERATIVE REPORT ---
DATE OF SERVICE: 05/16/2021 PREOPERATIVE DIAGNOSIS: Right proximal ureteral stone. POSTOPERATIVE DIAGNOSIS: Right proximal ureteral stone. OPERATION PERFORMED: Right ESWL. SURGEON: Calvin Canada MD ANESTHESIA: General. COMPLICATIONS: None. DESCRIPTION OF PROCEDURE: Under satisfactory general anesthesia, the patient in supine position on the ESWL table, the right proximal ureteral stone was localized. Shocks were delivered at kV of 6, a total of 2500 shocks completely fragmented the stone that was hardly visualized. The patient received 30 mg of Toradol and 40 mg of Lasix IV. She tolerated the procedure and anesthesia well and was sent to recovery room in stable condition. Job ID: [id number] DocumentID: [id number] Dictated Date: 05/16/2021 11:24:22 Customer Success Manager Date: 05/16/2021 14:43:49 Dictated By: CALVIN CANADA MD
== END 2021-05-16 13:40 | disposition home or self-care (01) ==
LOC: SDC 08:07
PROVIDERS: ATTEND Urology
DX: N20.1 Calculus of ureter (principal); E78.5 Hyperlipidemia, unspecified; F32.9 Major depressive disorder, single episode, unspecified; Z79.899 Other long term (current) drug therapy; Z79.890 Hormone replacement therapy; Z11.2 Encounter for screening for other bacterial diseases
CPT/HCPCS: 74018; 87081

== ENCOUNTER → 2021-05-18 | Outpatient (CLI) | payer BC ==
[~2021-05-18] MED LIST changes: +KETO10TA PO; +NITR-65 PO
== END ==
LOC: LABNPT 06:39
PROVIDERS: ATTEND Emergency Medicine
DX: Z01.812 Encounter for preprocedural laboratory examination (principal); Z20.822 Contact with and (suspected) exposure to COVID-19
CPT/HCPCS: 87635

== ENCOUNTER → 2021-05-21 | Outpatient (CLI) | payer BC ==
--- NOTE | 2021-05-21 13:36 | Diagnostic Imaging Report ---
INDICATION: Routine screening. Comparison is made with prior mammogram from 05/19/2020 and 03/05/2019. 2-D and 3-D bilateral screening mammography was performed with CAD. Both breasts are heterogeneously dense, limiting the sensitivity of mammography. The parenchymal pattern is stable. No mass or malignant-appearing microcalcifications are seen. Axillae are unremarkable. IMPRESSION: BI-RADS Category 1 No mammographic features suspicious for malignancy are identified. ACR BI-RADS Category 1: Negative. Result letter will be mailed to the patient. Note: At least 10% of breast cancer is not imaged by mammography. Dictated by: Dictated on workstation # [id number]
== END ==
LOC: RAD 10:15
PROVIDERS: ATTEND Surgery
DX: Z12.31 Encounter for screening mammogram for malignant neoplasm of breast (principal)
CPT/HCPCS: 77063; 77067

== ENCOUNTER → 2021-05-31 | Outpatient (CLI) | payer BC ==
--- NOTE | 2021-05-31 14:21 | Diagnostic Imaging Report ---
INDICATION: Status post ESWL. COMPARISON: 05/16/2021 FINDINGS: Single frontal supine radiographic view of the abdomen was obtained. There appears to been interval progression of right ureteral calculus into the right hemipelvis, presumably into the distal right ureter. No other unexpected extraosseous calcifications or radiopaque foreign bodies are seen. Small bowel loops are nondistended. There is no large collection of free intraperitoneal air. Osseous structures show no gross acute abnormalities IMPRESSION:. Findings consistent with interval migration of calculus into the distal right ureter. Dictated by: Dictated on workstation # [id number]
== END ==
LOC: RAD 12:45
PROVIDERS: ATTEND Urology
DX: N20.1 Calculus of ureter (principal)
CPT/HCPCS: 74018

== ENCOUNTER → 2021-06-18 | Outpatient (CLI) | payer BC ==
[~2021-06-18] VITALS: Ht 147 cm; Wt 72.0 kg
[~2021-06-18] MED LIST changes: +CATHETER FLUSH 10 ML SYR IV PRN
[2021-06-18 09:00] VITALS: BP 106/67
--- NOTE | 2021-06-18 12:49 | Cardiology Stress Test Report ---
Stress Test Report Date of Procedure/Referring: Date of Procedure: Jun 18, 2021 PCP Mary Finn MD Admitting Physician No,Local Physician Indications: HTN Baseline Heart Rate: 70 Baseline Blood Pressure: Blood Pressure Systolic: 106 Blood Pressure Diastolic: 67 Vital Signs Date Time Temp Pulse Resp B/P (MAP) Pulse Ox O2 Delivery O2 Flow Rate FiO2 06/18/21 09:00 72 16 106/67 (80) 98 Room Air Baseline Vital Signs Vital Signs Date Time Temp Pulse Resp B/P (MAP) Pulse Ox O2 Delivery O2 Flow Rate FiO2 06/18/21 09:00 72 16 106/67 (80) 98 Room Air Baseline EKG: Baseline EKG: NSR Summary: After explaining the procedure and details to the patient, she signed the consent and was brought to the stress nuclear laboratory. Patient exercised on standard Dexter protocol, EKG, heart rate and blood pressure were monitored continuously, resting and stress doses of radio tracer were injected, imaging was acquired and reviewed in the short axis, horizontal long axis and vertical long axis views Patient was able to exercise for a total of 7 minutes on Dexter protocol, METs 8.5 Maximum heart rate 153 Maximum blood pressure 149/73 Stress EKG, Minimal nondiagnostic changes Recovery EKG, Return to baseline TID: 0.84 SSS: 6 SDS: 1 EF: 69 Conclusion: 1. Good exercise tolerance for a total of 7 minutes on standard Dexter protocol, 8.5 METS achieving 85% of maximal expected heart rate 2. Appropriate heart rate and blood pressure response to exercise return to baseline during recovery 3. Breast attenuation with fixed defect involving the basal to mid anterior septum with no significant reversibility, no significant ischemia or infarction on SPECT images 4. Normal left ventricular size, normal contractility, EF 69% MARY FINN MD Jun 18, 2021 12:49
== END ==
LOC: CARD 07:45
PROVIDERS: ATTEND Internal Medicine Cardiovascular Disease
DX: I10 Essential (primary) hypertension (principal); I25.10 Atherosclerotic heart disease of native coronary artery without angina pectoris
CPT/HCPCS: 78452; 93017; A9502

== ENCOUNTER → 2021-06-21 | Outpatient (CLI) | payer BC ==
[~2021-06-21] MED LIST changes: -CATHETER FLUSH 10 ML SYR IV PRN
--- NOTE | 2021-06-21 17:51 | Diagnostic Imaging Report ---
INDICATION: Right upper ureteral stone, status post lithotripsy. TIME OF EXAM: 02:15 p.m. COMPARISON: Comparison is made with prior radiograph from 05/31/2021. FINDINGS: Bowel gas and fecal material obscure the renal shadows. A calcific density noted in the distribution of the distal right ureter now appears to be more medially positioned in the right paramidline pelvis consistent with migration of a calculus. This is likely near the UVJ. No other urinary tract calculi are seen. Bowel gas pattern is unremarkable. IMPRESSION: There appears to be migration of a distal right ureteral calculus, now likely near the UVJ. Dictated by: Dictated on workstation # [id number]
== END ==
LOC: RAD 13:59
PROVIDERS: ATTEND Urology
DX: N20.1 Calculus of ureter (principal)
CPT/HCPCS: 74018

== ENCOUNTER 2022-05-27 05:38 | Outpatient (CLI) | payer BC ==
[~2022-05-27] VITALS: Ht 152.4 cm; Wt 76.6 kg
== END 2022-05-27 16:21 ==
LOC: PREOP 05:38
PROVIDERS: ATTEND Podiatrist Foot & Ankle Surgery
DX: Z01.818 Encounter for other preprocedural examination (principal)

== ENCOUNTER 2022-06-03 05:56 | Day surgery (SDC) | payer BC ==
[~2022-06-03] VITALS: Ht 152.4 cm; Wt 76.6 kg
[2022-06-03] VITALS (11 sets, daily range): BP systolic 101–126; BP diastolic 67–99
[2022-06-03] MEDS ORDERED: ceFAZolin INJECTION 1,000 MG VIAL IV ONE (06:15)
[2022-06-03] MEDS ORDERED: MIDAZOLAM 2 MG/2 ML (VERSED) VIAL IV ONE (06:45)
[2022-06-03] MEDS: LACTATED RINGERS 1,000 ML IV PRN ×2 (06:48→09:49)
[2022-06-03] MEDS ORDERED: MIDAZOLAM 2 MG/2 ML (VERSED) VIAL ONE (06:49)
[2022-06-03] MEDS ORDERED: fentaNYL INJ 100 MCG/2 ML AMP ONE ×3 (07:21→11:45)
[2022-06-03] MEDS ORDERED: BUPIVACAINE 0.5% 30 ML (SENSORCAINE) VIAL ONE (07:28)
[2022-06-03] MEDS ORDERED: LIDOCAINE 1% INJ 10 ML VIAL ONE (07:28)
--- NOTE | 2022-06-03 07:47 | Progress Note-Pre Operative ---
Pre-Operative Progress Note Date of Available H&P: Jun 03, 2022 Date H&P Reviewed: Jun 03, 2022 Time H&P Reviewed: 07:46 Pre-Operative Diagnosis: Hallux Valgus left foot SHINE PANIAGUA DPCorey Jun 03, 2022 07:47
[2022-06-03] MEDS ORDERED: ONDANSETRON 4 MG/2 ML (SDV) Z0FRAN ONE ×2 (08:25→08:56)
[2022-06-03] MEDS ORDERED: LIDOCAINE PF 2% 5 ML (XYLOCAINE) VIAL ONE (08:25)
[2022-06-03] MEDS ORDERED: proPOfol 200 MG/20 ML (DIPRIVAN) VIAL IV ONE (08:25)
[2022-06-03] MEDS ORDERED: BUPIVACAINE 0.5% 30 ML (SENSORCAINE) VIAL IJ ONE (08:36)
[2022-06-03] MEDS ORDERED: LIDOCAINE 1% INJ 10 ML VIAL IJ ONE (08:38)
[2022-06-03] MEDS ORDERED: SEVOFLURANE (ULTANE) 15 ML INHAL SOLN ONE (10:29)
[2022-06-03] MEDS ORDERED: KETOROLAC 30 MG/ML VIAL ONE (10:29)
--- NOTE | 2022-06-03 10:29 | Progress Note-Post Operative ---
Post-Operative Progess Note Surgeon (s)/Special Collections Librarian (s) Surgeon SHINE PANIAGUA DPM Special Collections Librarian: none Pre-Operative Diagnosis Hallux Valgus left foot Post-Operative Diagnosis Same plus ganglionic cyst, left Procedure & Operative Findings Date of Procedure 06/03/22 Procedure Performed/Findings Lapidus-Nader bunionectomy, left Excision of Soft Tissue Mass, left foot Anesthesia Type General Estimated Blood Loss Estimated blood loss (mL): Minimal Specimens/Packing Specimens Removed Soft Tissue left 1st MTPJ area SHINE PANIAGUA DPM Jun 03, 2022 10:29
[2022-06-03] MEDS ORDERED: LACTATED RINGERS 1,000 ML IV SCH (10:30)
[2022-06-03] MEDS ORDERED: CEPH500C PO (10:32)
[2022-06-03] MEDS ORDERED: ACHD5005 PO (10:32)
[2022-06-03] MEDS ORDERED: morphine INJ 10 MG/ML 1ML (SYR OR VIAL) IVP ONE (11:00)
[2022-06-03] MEDS ORDERED: fentaNYL INJ 100 MCG/2 ML AMP IVP ONE ×2 (11:00→11:45)
[2022-06-03] MEDS ORDERED: ONDANSETRON 4 MG/2 ML (SDV) Z0FRAN IVP PRN (11:00)
--- NOTE | 2022-06-03 11:00 | Anesthesia-General Post-Op ---
General Patient Condition Mental Status/LOC: Same as Preop Cardiovascular: Satisfactory Nausea/Vomiting: Absent Respiratory: Satisfactory Pain: Controlled Complications: Absent Post Op Complications Complications None Follow Up Care/Instructions Patient Instructions None needed. Anesthesia/Patient Condition Patient Condition Patient is doing well, no complaints, stable vital signs, no apparent adverse anesthesia problems. No complications reported per nursing. CYNDY NOVA CRNA Jun 03, 2022 11:00
[2022-06-03] MEDS: HYDROcodone/APAP 5 MG/325 MG (LORTAB) TAB PO PRN ×2 (11:19→11:23)
--- NOTE | 2022-06-03 11:58 | Physical Therapy Ortho Eval ---
PT Orthopedic Evaluation Type of Surgery Hallux Valgus left foot Prior Level of Function Current Living Status: Children Locomotion (Upon Admit): Independent Established Durable Medical Eq: None Subjective Entry Into Home: Stairs With Railing Steps Into Home: 3 Steps Accessories: Railing Present Motor Control Motor Control: Motor Control WNL ROM ROM: WFL, except focal deficit Strength Strength: WFL Transfer SCALE: Activities may be completed with or without assistive devices. 3-Kciqxzpobq-oxybmdk completes the activity by him/herself with no assistance from a helper. 5-Set-up or Clean-up Assistance-helper sets up or cleans up; patient completes activity. [place] assists only prior to or following the activity. 4-Supervision or Touching Assistance-helper provides verbal cues and/or touching/steadying and/or contact guard assistance as patient completes activity. Assistance may be provided throughout the activity or intermittently. 3-Partial/Moderate Assistance-helper does LESS THAN HALF the effort. [place] lifts, holds or supports trunk or limbs, but provides less than half the effort. 2-Substantial/Maximal Assistance-helper does MORE THAN HALF the effort. [place] lifts or holds trunk or limbs and provides more than half the effort. 2-Xkpllovti-wdxgel does ALL the effort. Patient does none of the effort to complete the activity. Or, the assistance of 2 or more helpers is required for the patient to complete the activity. If activity was not attempted, code reason: 7-Patient Refused. 9-Not Applicable-not attempted and the patient did not perform the activity before the current illness, exacerbation or injury. 10-Not Attempted due to Environmental Limitations-(lack of equipment, weather restraints, etc.). 88-Not Attempted due to Medical Conditions or Safety Concerns. Transfers (B, C, W/C) (QC): 6 Gait Gait Assistive Device: FWW Patient is able to comply with NWB left LE and ambulate with FWW without difficulty Right Lower Extremity: Right Weight Bearing Status RLE: Full Weight Bearing Left Lower Extremity: Left Weight Bearing Status LLE: Non Weight Bearing Gait (QC): 4 Distance: 150' Gait Level of Assist: 4 Treatment Rendered Treatment: Gait Train, Step Train (verbal) Assessment/Goals Goal Time Frame: 1 Visit Safe Ambulation: Yes Plan Treatment Plan: Discharge, Education Treatment Duration: eval Time Time In: 1140 Time Out: 1151 Total Billed Treatment Time: 11 Billed Treatment Time 1 visit Serge reed 11 min BONI DELAROSA PT Jun 03, 2022 11:58
--- NOTE | 2022-06-03 14:35 | OPERATIVE REPORT ---
DATE OF SERVICE: 06/03/2022 SURGEON: Niecy Paniagua DPM. PREOPERATIVE DIAGNOSES: 1. Hallux abductovalgus with metatarsal primus varus, left foot. 2. Metatarsal primus elevatus. POSTOPERATIVE DIAGNOSES: 1. Hallux abductovalgus with metatarsal primus varus, left foot. 2. Metatarsal primus elevatus. 3. Soft tissue lesion, left first metatarsophalangeal joint. PROCEDURES: 1. Modified Lapidus Nader bunionectomy, left. 2. Excision of soft tissue lesion, left first metatarsal head area. WOUND CLASS: Clean. ANESTHESIA: General. HEMOSTASIS: Pneumatic thigh tourniquet at 250 mmHg. INDICATIONS: This is a 41-year-old female presents complaining of a painful left bunion. Conservative therapy has met with unsatisfactory results and the patient is agreeable to surgical intervention after risks and complications were discussed at length. No guarantees were extended to the patient and she is willing to proceed. DESCRIPTION OF PROCEDURE: The patient was brought back to the operating table, placed in secure supine position. A general anesthetic was then induced. Appropriate timeout was performed. A pneumatic thigh tourniquet was placed on the left lower extremity over several layers of padding. The left foot was then prepped and draped in normal sterile manner. A preoperative injection consisted of 10 mL of 1:1 mixture of 1% Xylocaine, 0.5% Marcaine injected in a Rooney block. The left foot was then elevated, allowed to exsanguinate after which the tourniquet was inflated to 250 mmHg. Attention was then directed to the dorsal aspect of the left foot overlying the first metatarsal cuneiform joint where a 4 cm longitudinal linear incision was created. The incision was deepened in the same plane with great care to identify and retract all vital neurovascular structures. Only necessary blood vessels were cauterized as encountered. The incision was deepened down to the capsular tissue where a longitudinal capsulotomy was performed. Once this was reflected, the collateral ligaments to the first metatarsal cuneiform joint were released utilizing a [place] 28 system for Lapidus. Also utilizing intraoperative C-arm, appropriate angulation for the cuts were utilized utilizing the standard technique for the cut guide system. The intent was to reduce the intermetatarsal angle by approximately 10 degrees as well as plantar flex approximately 4 degrees. This was achieved and noted with intraoperative C-arm. With the cut guide, the base of the first metatarsal was removed as well as the distal portion of the medial cuneiform. Next, utilizing 1.5 mm drill bit, fenestration was performed to the distal portion of the medial cuneiform and base of the first metatarsal. The wound was flushed with copious amounts of normal saline. A temporary fixation was driven from proximal plantar to proximal dorsal and lateral. Next, utilizing the standard Lapidus plate left [place] #28, it was temporarily fixated to the arthrodesis site utilizing a temporary fixation. Next, utilizing a guidewire, a wire was driven from dorsal distal to plantar proximal. Overlying this guidewire headed short thread cannulated screw of 34 mm of length was applied. This was a 3.5 mm screw. Excellent compression was appreciated. Minimal plantar flexion was appreciated at the arthrodesis site with the metatarsal. Next, the plate was secured in place at the most proximal aspect of the plate at the medial cuneiform. The two screws were 3.5 locking screws of 18 and 20 mm of length. The neck screw was two more distal screws, the first was a 3.5 locking screw of 16 mm of length and the other was a nonlocking screw 3.5, 14 mm of length. The plantar medial screw was a locking screw of 18 mm of length 3.5 mm screw. Excellent bony apposition and fixation was appreciated visually as well as with intraoperative C-arm. The wound was flushed with copious amounts of normal saline and closure was performed in layers. Deep closure was performed with 3-0 Vicryl, superficial with 4-0 Vicryl. Attention was then directed to the distal portion of the first ray where a 5.5 cm longitudinal linear incision was created. This incision overlying the first metatarsophalangeal joint allowed for visualization of the first metatarsophalangeal joint area, a longitudinal capsulotomy was performed. During this procedure, a mass approximately 1 cm in diameter signs noted in the soft tissue of the capsular extended down to the joint, during the dissection, the soft tissue lesion was disrupted noting some yellow gelatinous type material. This soft tissue mass was sent for gross and microscopic evaluation, but was grossly identified to be a ganglionic cyst. No other abnormalities were identified to the capsular tissue. Utilizing a power sagittal saw, the medial eminence of the first metatarsal head was resected as well as the dorsal eminence to the first metatarsal head. This was further contoured and smoothed with a power bur. There still has some lateral deviation to the hallux and an Nader type procedure was then performed. Subperiosteal dissection was carried out to the diaphysis of the proximal phalanx, after which a power sagittal saw was utilized to create a wedge of bone resection with the base medial and lateral cortices held intact. Once the wedge of bone was resected and the gap closed, two ferryboat pilot holes were created at the dorsal medial aspect of the osteotomy after which a 28-gauge monofilament wire was passed through these ferryboat pilot holes securing the osteotomy in a closed position. Excellent bony apposition and fixation was appreciated at this time. The wound was flushed with copious amounts of normal saline throughout the procedure. Closure was then performed in layers. Deep closure was performed with 3-0 Vicryl, superficial with 4-0 Vicryl, skin closed with 4-0 Prolene in a horizontal mattress type stitch for the first and second incision. Postoperative injection consisted of 0.5% Marcaine injected in a Rooney block, a total of 18 mL was utilized as well as 10 mg of dexamethasone around the first metatarsophalangeal joint area and specifically the area of the ganglionic cyst. A postoperative dressing consisted of Betadine soaked Adaptic, sterile 4 x 4, sterile Kerlix all secured with a Coban wrap. The patient tolerated the anesthesia and procedure well and was transferred from the operating room to the recovery room with vital signs stable and vascular status intact to all digits of the left foot. She is to be nonweightbearing for the next several weeks. She is to follow up in my office in 10 days' period of time or sooner if necessary. Job ID: [id number] DocumentID: [id number] Dictated Date: 06/03/2022 11:01:35 [employer] Supervisor Date: 06/03/2022 14:34:02 Dictated By: NIECY PANIAGUA DPM
--- NOTE | 2022-06-03 15:55 | Diagnostic Imaging Report ---
INDICATION: Post operative evaluation. COMPARISON: None available. TECHNIQUE: Two radiographs of the left foot dated 06/03/2022. FINDINGS: Post surgical changes are identified with post surgical ankylosis involving the 1st CMC joint with plate and screw fixation present. Osteotomy involving the 1st digit proximal phalanx is also identified. Post surgical soft tissue gas is present within the region. No evidence of immediate hardware complication. No acute fracture or dislocation. No suspicious radiopaque foreign body. IMPRESSION: Recent post surgical changes involving the 1st ray without evidence of immediate hardware complication or acute osseous abnormality. Dictated by: Dictated on workstation # [id number]
== END 2022-06-03 12:27 | disposition home or self-care (01) ==
LOC: SDC 05:56
PROVIDERS: ATTEND Podiatrist Foot & Ankle Surgery
DX: M79.89 Other specified soft tissue disorders (principal); M20.12 Hallux valgus (acquired), left foot; M67.472 Ganglion, left ankle and foot; E66.9 Obesity, unspecified; Z68.33 Body mass index [BMI] 33.0-33.9, adult; Z87.891 Personal history of nicotine dependence; K21.9 Gastro-esophageal reflux disease without esophagitis; I08.1 Rheumatic disorders of both mitral and tricuspid valves; E78.2 Mixed hyperlipidemia; I10 Essential (primary) hypertension; I25.10 Atherosclerotic heart disease of native coronary artery without angina pectoris
CPT/HCPCS: 28039; 28297; 73620; 87081; 97161; C1713 ×10

== ENCOUNTER 2022-06-18 09:33 | Outpatient (CLI) | payer BC ==
[~2022-06-18] VITALS: Ht 147.3 cm; Wt 76.7 kg
[~2022-06-18 09:33] MED LIST changes: +CEPH500C PO
[2022-06-18] MEDS ORDERED: PANT40TA52 PO (10:27)
== END 2022-06-18 11:08 | disposition home or self-care (01) ==
LOC: PREOP 09:33
PROVIDERS: ATTEND Surgery
DX: Z01.818 Encounter for other preprocedural examination (principal)

== ENCOUNTER 2022-06-19 12:56 | Day surgery (SDC) | payer BC ==
[~2022-06-19] VITALS: Ht 147.3 cm; Wt 76.7 kg
[~2022-06-19 12:56] MED LIST changes: +PANT40TA52 PO
[2022-06-19] MEDS ORDERED: LACTATED RINGERS 1,000 ML IV STA (13:11)
[2022-06-19] MEDS ORDERED: LACTATED RINGERS 1,000 ML IV ONE (13:13)
[2022-06-19] MEDS ORDERED: HURRICAINE EXT TUBE (BENZOCAINE) XX PRN (13:15)
[2022-06-19] MEDS ORDERED: LIDOCAINE JELLY 2% 6 ML SYRINGE MM PRN (13:15)
[2022-06-19 13:27] VITALS: BP 119/77
--- NOTE | 2022-06-19 13:42 | Progress Note-Pre Operative ---
Pre-Operative Progress Note Date of Available H&P: Jun 19, 2022 Date H&P Reviewed: Jun 19, 2022 Time H&P Reviewed: 13:30 History & Physical: No changes noted Pre-Operative Diagnosis: GERD LYNDA HERNANDEZ MD Jun 19, 2022 13:42
--- NOTE | 2022-06-19 13:44 | Discharge Inst-Surgical ---
D/C Lap Instructions-MARY Follow Up Activity as tolerated High Fiber Diet 25g or more per day Avoid Alcohol, Caffeine, Spicy [place] and Acid foods. Drink 64 fluid oz or more of fluids per day. Symptoms to Report: Fever over 101 degree F, Nausea/Vomiting If any problems/questions: Contact your physician or go to Emergency Room LYNDA HERNANDEZ MD Jun 19, 2022 13:44
[2022-06-19] MEDS ORDERED: ONDANSETRON 4 MG (ZOFRAN) ORAL DISSOLVE TAB PO PRN (13:45)
[2022-06-19] MEDS ORDERED: ONDANSETRON 4 MG/2 ML (SDV) Z0FRAN IVP PRN (13:45)
--- NOTE | 2022-06-19 14:31 | Anesthesia-General Post-Op ---
MAC Patient Condition Mental Status/LOC: Same as Preop Cardiovascular: Satisfactory Nausea/Vomiting: Absent Respiratory: Satisfactory Pain: Controlled Complications: Absent Post Op Complications Complications None Follow Up Care/Instructions Patient Instructions None needed. Anesthesiology Discharge Order Discharge Order Patient is doing well, no complaints, stable vital signs, no apparent adverse anesthesia problems. No complications reported per nursing. MERARI SANCHEZ CRNA Jun 19, 2022 14:31
[2022-06-19] MEDS ORDERED: MIDAZOLAM 2 MG/2 ML (VERSED) VIAL ONE (14:40)
[2022-06-19] MEDS ORDERED: PROPOFOL INJECTION 50 ML IV ONE (14:40)
[2022-06-19 15:05] VITALS: BP 111/62
[2022-06-19 15:10] VITALS: BP 101/63
--- NOTE | 2022-06-19 15:14 | Progress Note-Post Operative ---
Post-Operative Progess Note Surgeon (s)/Rubbing Bed Operator (s) Surgeon LYNDA HERNANDEZ MD Rubbing Bed Operator: none Pre-Operative Diagnosis GERD Post-Operative Diagnosis reflux esophagitis(grade B), moderate HH(2.5cm), mild-mod gastritis. Procedure & Operative Findings Date of Procedure 06/19/22 Procedure Performed/Findings EGD with bx. Anesthesia Type mac Estimated Blood Loss Estimated blood loss (mL): minimal Specimens/Packing Specimens Removed ge jxn, antrum LYNAD HERNANDEZ MD Jun 19, 2022 15:14
[2022-06-19 15:15] VITALS: BP 107/72
[2022-06-19 15:45] VITALS: BP 106/62
[2022-06-19 15:50] VITALS: BP 106/62
--- NOTE | 2022-06-20 01:32 | OPERATIVE REPORT ---
DATE OF SERVICE: 06/19/2022 ATTENDING PRIMARY CARE: PAULINA Ayala PREOPERATIVE DIAGNOSIS: Chest pain with radiation towards the left jaw. POSTOPERATIVE DIAGNOSES: Reflux esophagitis, Chana grade B, small to moderate size hiatal hernia approximately 2.5 cm in size, mild to moderate gastritis. No distal obstructions. PROCEDURE: EGD with biopsy. SURGEON: Dr. Lynda Hernandez. ANESTHESIA: Monitored anesthesia care. ESTIMATED BLOOD LOSS: Minimal. FINDINGS: Same as postoperative diagnosis. DISPOSITION: The patient tolerated the procedure well. INDICATIONS: The patient is a 42-year-old female referred over to us from Dr. Finn for noncardiac chest pain. She initially had pain in the epigastric region left chest with radiation towards the jaw. She underwent a cardiac workup, which was negative for acute coronary syndrome. She does report that she has had some issues with gastroesophageal reflux disease in the past, which has worsened as she has gotten older. DESCRIPTION OF PROCEDURE: The patient was brought to the endoscopy suite, laid in the left lateral decubitus position. After adequate IV pain and sedative medications and after monitored anesthesia care, the mouthpiece was applied. The endoscope was placed in the mouth, visualizing the pharynx and hypopharyngeal region. Vocal cords, epiglottis and vallecula identified and appeared to be normal. The endoscope was then gently intubated into the esophageal opening and esophagus insufflated. The endoscope was then advanced through the first, second and third portion of esophagus at the level of the GE junction, a reflux esophagitis, Chana grade B identified. There were no ulcers or strictures identified in this region. A biopsy was taken with forceps with visualization of good hemostasis. The endoscope was then advanced into the stomach and endoscope retroflexed, visualizing a moderate-sized type 1 sliding hiatal hernia approximately 2.5 cm in size. This is the most likely etiology of her chest discomfort. There was a mild to moderate gastritis. No formal ulcerations, polyps, or any neoplasms. A biopsy was taken of the antrum to rule out H. pylori with visualization of good hemostasis. Endoscope was then advanced to the pylorus and the first and second portion of the duodenum, which appeared normal with no distal obstructions. The endoscope was then slowly withdrawn while taking a second look and suctioning of residual air with no additional findings. The patient tolerated the procedure well. We will recommend the necessary lifestyle and dietary accommodation including avoidance of caffeinated beverages, spicy, greasy and acidic foods as well as alcoholic beverages. She will also need to proceed with small and more frequent meals and avoidance of eating at night. She was started on Protonix 40 mg daily, which we will recommend that she continue. She does have a moderate size hiatal hernia and if she proceeds with medical therapy and is extremely compliant; however, continues to have symptoms, we will recommend a repair of the hiatal hernia; however, before this, we would recommend significant amount of weight loss due to her body mass index being 35 and that there are unacceptable high reoccurrence rates at that body mass index. We will also get an esophageal manometry study to rule out an esophageal dysmotility disorder beforehand as well. Job ID: [id number] DocumentID: [id number] Dictated Date: 06/19/2022 15:08:12 Resin Shaver Date: 06/20/2022 01:31:49 Dictated By: LYNDA HERNANDEZ MD MTDD
== END 2022-06-19 15:50 | disposition home or self-care (01) ==
LOC: ENDO 12:56
PROVIDERS: ATTEND Surgery
DX: K21.00 Gastro-esophageal reflux disease with esophagitis, without bleeding (principal); K44.9 Diaphragmatic hernia without obstruction or gangrene; K29.70 Gastritis, unspecified, without bleeding; K31.9 Disease of stomach and duodenum, unspecified; Z79.899 Other long term (current) drug therapy; Z87.891 Personal history of nicotine dependence

== ENCOUNTER 2022-08-26 05:32 | Outpatient (CLI) | payer BC ==
[~2022-08-26] VITALS: Ht 147.3 cm; Wt 77.6 kg
== END 2022-08-27 14:24 ==
LOC: PREOP 05:32
PROVIDERS: ATTEND Podiatrist Foot & Ankle Surgery
DX: Z01.818 Encounter for other preprocedural examination (principal); M20.11 Hallux valgus (acquired), right foot

== ENCOUNTER 2022-09-03 10:23 | Day surgery (SDC) | payer BC ==
[~2022-09-03] VITALS: Ht 147.3 cm; Wt 77.6 kg
[2022-09-03] VITALS (11 sets, daily range): BP systolic 101–118; BP diastolic 65–82
[2022-09-03] MEDS ORDERED: ceFAZolin INJECTION 1,000 MG in NS (IVPB) 50 ML IV ONE (10:45)
[2022-09-03] MEDS ORDERED: BUPIVACAINE 0.5% 30 ML (SENSORCAINE) VIAL ONE (10:55)
[2022-09-03] MEDS ORDERED: LIDOCAINE 1% INJ 20 ML VIAL ONE (10:55)
[2022-09-03] MEDS: LACTATED RINGERS 1,000 ML IV PRN ×2 (11:16→13:07)
[2022-09-03] MEDS ORDERED: fentaNYL INJ 100 MCG/2 ML AMP ONE ×2 (11:29→11:45)
[2022-09-03] MEDS ORDERED: fentaNYL INJ 100 MCG/2 ML AMP IVP ONE (11:30)
[2022-09-03] MEDS ORDERED: proPOfol 200 MG/20 ML (DIPRIVAN) VIAL IV ONE (11:45)
[2022-09-03] MEDS ORDERED: MIDAZOLAM 2 MG/2 ML (VERSED) VIAL ONE (11:45)
[2022-09-03] MEDS ORDERED: LIDOCAINE PF 2% 5 ML (XYLOCAINE) VIAL ONE (11:45)
[2022-09-03] MEDS ORDERED: ONDANSETRON 4 MG/2 ML (SDV) Z0FRAN ONE (11:45)
--- NOTE | 2022-09-03 11:58 | Progress Note-Pre Operative ---
Pre-Operative Progress Note Date of Available H&P: Sep 03, 2022 Date H&P Reviewed: Sep 03, 2022 Time H&P Reviewed: 11:58 Pre-Operative Diagnosis: Hallux Valgus right SHINE PANIAGUA DPCorey Sep 03, 2022 11:58
[2022-09-03] MEDS ORDERED: BUPIVACAINE 0.5% 30 ML (SENSORCAINE) VIAL INJ ONE (12:36)
[2022-09-03] MEDS ORDERED: LIDOCAINE 1% INJ 20 ML VIAL INJ ONE (12:37)
[2022-09-03] MEDS ORDERED: SEVOFLURANE (ULTANE) 15 ML INHAL SOLN ONE (14:33)
--- NOTE | 2022-09-03 14:42 | Progress Note-Post Operative ---
Post-Operative Progess Note Surgeon (s)/Marine Operations Coordinator (s) Surgeon SHINE PANIAGUA DPM Marine Operations Coordinator: none Pre-Operative Diagnosis Hallux Valgus right Post-Operative Diagnosis Same Procedure & Operative Findings Date of Procedure 09/03/22 Procedure Performed/Findings Lapidus-Nader type bunionectomy, right Anesthesia Type General Estimated Blood Loss Estimated blood loss (mL): Minimal Specimens/Packing Specimens Removed None SHINE PANIAGUA DPM Sep 03, 2022 14:42
[2022-09-03] MEDS ORDERED: CEPH500C PO (14:45)
[2022-09-03] MEDS ORDERED: HYDROmorphone 2 MG/ML VIAL (DILAUDID) IV ONE (14:45)
[2022-09-03] MEDS ORDERED: LACTATED RINGERS 1,000 ML IV SCH (14:45)
[2022-09-03] MEDS ORDERED: PROMETHAZINE INJ 25 MG/ML (PHENERGAN) AMP IVP ONE (14:45)
[2022-09-03] MEDS ORDERED: ACHD5005 PO (14:45)
[2022-09-03] MEDS ORDERED: MEPERIDINE (DEMEROL) INJ 50 MG/ML IVP ONE (14:45)
[2022-09-03] MEDS ORDERED: HYDROcodone/APAP 5 MG/325 MG (LORTAB) TAB PO PRN (14:45)
[2022-09-03] MEDS ORDERED: ONDANSETRON 4 MG/2 ML (SDV) Z0FRAN IVP PRN (14:45)
[2022-09-03] MEDS ORDERED: morphine INJ 10 MG/ML 1ML (SYR OR VIAL) IVP ONE (14:45)
--- NOTE | 2022-09-03 15:14 | Diagnostic Imaging Report ---
INDICATION: Postoperative right foot check. EXAMINATION: Right foot from 09/03/2022. FINDINGS: 2 views of the foot. There are postoperative changes with a sideplate and intervening screws through the 1st tarsal metatarsal joint. Osteotomy changes within the adjacent cerclage wire noted at the 1st proximal phalanx. Soft tissue irregularity and subcutaneous air adjacent to the postoperative changes consistent with the recent surgery. IMPRESSION: 1. Uncomplicated expected postoperative findings. Dictated by: Dictated on workstation # [id number]
--- NOTE | 2022-09-03 15:34 | Anesthesia-General Post-Op ---
General Patient Condition Mental Status/LOC: Same as Preop Cardiovascular: Satisfactory Nausea/Vomiting: Absent Respiratory: Satisfactory Pain: Controlled Complications: Absent Post Op Complications Complications None Follow Up Care/Instructions Patient Instructions None needed. Anesthesia/Patient Condition Patient Condition Patient is doing well, no complaints, stable vital signs, no apparent adverse anesthesia problems. No complications reported per nursing. RYAN ESPINOSA CRNA Sep 03, 2022 15:34
[2022-09-03] MEDS ORDERED: HYDROcodone/APAP 5 MG/325 MG (LORTAB) TAB ONE (16:03)
--- NOTE | 2022-09-04 | OPERATIVE REPORT ---
DATE OF SERVICE: 09/03/2022 SURGEON: Niecy Paniagua DPM PREOPERATIVE DIAGNOSIS: Hallux abductovalgus metatarsal primus varus, right. POSTOPERATIVE DIAGNOSIS: Hallux abductovalgus metatarsal primus varus, right. PROCEDURE: Modified Lapidus Nader procedure bunionectomy, right foot. WOUND CLASS: Clean. ANESTHESIA: General. HEMOSTASIS: Pneumatic thigh tourniquet at 250 mmHg. INDICATIONS: This 42-year-old female presents complaining of a painful bunion of the right foot. Conservative therapy has met with unsatisfactory results and the patient is agreeable to surgical intervention after risks and complications were discussed at length. No guarantees were extended to the patient and she is willing to proceed. DESCRIPTION OF PROCEDURE: The patient was brought back to the operating room table and placed in secure supine position. General anesthetic was then induced. Appropriate timeout was performed. A pneumatic thigh tourniquet was placed on the right lower extremity over several layers padding. Presurgical injection of 10 mL of 1:1 mixture of 1% Xylocaine and 0.5% Marcaine injected in a Rooney block of the right foot. Again, the foot was exsanguinated and elevated, tourniquet was inflated to 250 mmHg. Attention was then directed to the dorsal aspect of the first metatarsal cuneiform joint area dorsomedial aspect where an incision of approximately 5 cm was performed. The incision was deepened in the same plane with great care to identify and retract all vital neurovascular structures. Only necessary blood vessels were cauterized as encountered. The incision was deepened down to the capsule where a longitudinal capsulotomy was performed. Next, utilizing the [place] 28 cut guide 8 degree correction for the IM angle and a 4-degree plantar flexion was applied to the arthrodesis site. Next, utilizing the [place] plate system, a 4-hole standard Lapidus plate was utilized with the addition of a 4.028 in length mm screw was placed from dorsal distal to plantar proximal across the arthrodesis site. Excellent bony apposition and fixation was appreciated with this; however, the locking plate was performed with 3.5 screws, the most proximal were 16 and 18 more distal on the metatarsal side with additional 16, 18 and 14 screws. The last was nonlocking. The wound was flushed with copious amounts of normal saline throughout the procedure and the arthrodesis site was fenestrated prior to fixation. Intraoperative C-arm confirmed appropriate alignment and fixation. Attention was then directed to the dorsal aspect of the first metatarsophalangeal joint where the incision was continued overlying the metatarsophalangeal joint area and onto the proximal phalanx of the hallux. The incision was deepened down in the same plane with great care to identify and retract all vital neurovascular structures. The incision was deepened down to the capsule of the first metatarsophalangeal joint where a longitudinal capsulotomy was performed. The medial eminence to the first metatarsal head was resected with a power sagittal saw. Next, blunt dissection was carried out into the first intermetatarsal space where a lateral release was performed, which included lateral capsulorrhaphy followed by release of the conjoined tendon of the adductor hallucis and a fibular sesamoidal ligament release. Next, an Nader type osteotomy was performed. Subperiosteal dissection was carried out to the diaphysis of the proximal phalanx, after which a wedge of bone was resected utilizing the power sagittal saw with the base, medial and the lateral cortices held intact. Once the wedge of bone was resected, two barge pilot holes were created at the dorsal medial aspect of the osteotomy after which a 20-gauge monofilament wire was passed through these barge pilot hole securing the osteotomy in a closed position. The wound was flushed with copious amounts of normal saline throughout the procedure. Excellent range of motion was appreciated at the right first metatarsophalangeal joint with appropriate alignment confirmed with intraoperative C-arm. Closure was then performed in layers. Deep closure was performed with a 3-0 Vicryl, superficial with 4-0 Vicryl, skin closure with 4-0 Prolene in a horizontal mattress type stitch. Postoperative injection consisted of 12 mL of 1:1 mixture of 1% Xylocaine and 0.5% Marcaine injected in a Rooney block followed by 10 mg of dexamethasone into the first intermetatarsal space. Postoperative dressing consisted of Betadine-soaked Adaptic, sterile 4 x 4's, sterile Kerlix all secured with a Coban wrap. The patient tolerated the anesthesia and procedure well and was transported from the operating room to the recovery area with vital signs stable and vascular status intact to all digits of the right foot. She is to follow up in my office in one week period of time or 10 days period of time or sooner if necessary. She was given a prescription for Keflex as well as Vicodin. Job ID: [id number] DocumentID: [id number] Dictated Date: 09/03/2022 14:55:05 Archaeology Professor Date: 09/03/2022 23:58:00 Dictated By: NIECY PANIAGUA DPM
== END 2022-09-03 17:05 | disposition home or self-care (01) ==
LOC: SDC 10:23
PROVIDERS: ATTEND Podiatrist Foot & Ankle Surgery
DX: Q66.211 Congenital metatarsus primus varus, right foot (principal); K21.9 Gastro-esophageal reflux disease without esophagitis; E66.9 Obesity, unspecified; Z68.35 Body mass index [BMI] 35.0-35.9, adult; Z87.891 Personal history of nicotine dependence
CPT/HCPCS: 28297; 28298; 73620; 87081; C1713 ×9